=== PATIENT | female | born 1990 | race Caucasian/White ===

== ENCOUNTER 2023-05-21 09:02 | Outpatient (CLI) | payer BC, SELFPAY ==
--- NOTE | 2023-05-21 09:15 | CRLHL7_ITS ---
For Patients: As a result of the Cures Act, medical imaging exams and procedure reports are released immediately into your electronic medical record. You may view this report before your referring provider. If you have questions, please contact your health care provider. INDICATION: First trimester scan, establish dates. COMPARISON: None. TECHNIQUE: Real-time da silva-scale imaging of the pelvis was performed. FINDINGS: Sonographic imaging demonstrates a single living intrauterine gestation. The embryo demonstrates a regular cardiac rate measuring 178 beats per minute. The embryo`s crown-rump length measurement of 1.8 cm corresponds to a gestational age of 8 weeks 1 day with a sonographic due date of 12.30.23. There is a normal-appearing yolk sac. A possible umbilical cord cyst is present which is likely incidental. The gestational sac has a normal appearance. There is no evidence of a perigestational hemorrhage. The amount of fluid within the sac appears appropriate for gestational age. The cervix is closed. The myometrium appears normal. The ovaries are of normal size. Corpus luteal cyst left ovary. There are no suspicious fluid collections noted in the cul-de-sac. IMPRESSION: Single living intrauterine with sonographic gestational age 8 weeks 1 day and sonographic due date 12/30/2023. Possible umbilical cord cyst. Follow-up in 2-3 weeks recommended. Dictated by Ayo Narvaez MD @ 05/21/2023 10:13:14 AM (Electronically Signed)
== END 2023-05-21 09:03 | disposition home or self-care (01) ==
LOC: US 09:03
PROVIDERS: Visit Provider Physician Assistant
DX: Z34.91 Encounter for supervision of normal pregnancy, unspecified, first trimester (principal); Z3A.01 Less than 8 weeks gestation of pregnancy
CPT/HCPCS: 76817; 82565; 82570; 84156; 84450; 84460; 84520; 86703; 86706; 86803; 86850; 86900; 86901; 87086; 87340; 87491; 87591

== ENCOUNTER 2023-05-21 10:20 | Outpatient (CLI) | payer BC, SELFPAY ==
[2023-05-21 19:38] LABS: Chlamydia DNA Amplified* NOT DETECTED (No Detected); GC DNA Amplified* NOT DETECTED (No Detected)
== END 2023-05-21 10:21 | disposition home or self-care (01) ==
PROVIDERS: Visit Provider Physician Assistant
DX: Z34.91 Encounter for supervision of normal pregnancy, unspecified, first trimester (principal)
CPT/HCPCS: 82565; 82570; 84156; 84450; 84460; 84520; 86592; 86703; 86704; 86706; 86762; 86787; 86803; 86850; 86900; 86901; 87086; 87340; 87491; 87591

== ENCOUNTER 2023-05-30 16:43 | Outpatient (CLI) | payer BC, SELFPAY ==
--- OUTSIDE RECORDS SUMMARY | 2023-06-05 18:02 | XMS_ITS | Clinical Summary ---
Author Name Unknown Organization [facility] Address [facility] [place] [address] Care Team Providers Care Manager Paid Name Role Phone Hanna Cuello APRN CRATE REPAIRER Primary Care Prov ider Hanna Cuello APRN CRATE REPAIRER Unavailable + Allergies Active Allergy Reactions Criticality Noted Date Comments Levonorgestrel-Ethiny l Estrad Other (See Comments) 10/16/2017 Migraine with aura on combined control pills Shellfish Allergy Anaphylaxis High 06/16/2007 Medications Medication Sig Dispensed Refills Start Date End Date Status fluticasone (FLONASE) 50 MCG/ACT nasal sprayIndications:Aller gic rhinitis, cause unspecified 2 sprays by Both Nostrils route daily. 1 Package 12 08/28/2010 Active augmented betamethasone dipropionate (DIPROLENE AF) 0.05 % external cream APPLY TO AFFECTED AREA 1-2 TIMES DAILY FOR UP TO TWO WEEKS. 0 01/22/2022 Active SUMAtriptan (IMITREX) 50 MG tabletIndications:Intr actable migraine with aura without status migrainosus Take 1 tablet (50 mg) by mouth at onset of headache for migraine May repeat in 2 hours. Max 4 tablets/24 hours. 27 tablet 0 10/24/2022 Active Active Problems Problem Noted Date Diagnosed Date Gestational hypertension wit hout significant proteinuria, affecting childbirth 05/03/2021 Intractable chronic migraine without aura and without status migrainosus 09/23/2017 Contraceptive management 08/28/2010 CARDIOVASCULAR SCREENING; LDL GOAL LESS THAN 160 03/26/2010 Allergic rhinitis 12/17/2005 Overview: Problem list name updated by automated process. Provider to review Resolved Problems Problem Noted Date Diagnosed Date Resolved Date Sprain of ankle 05/07/2006 05/30/2006 Overview: Problem list name updated by automated process. Provider to review Immunizations Name Administration Dates Next Due HIB (PRP-T) 08/28/1990 HPV 01/12/2008,08/15/2007,06/16/2007 HPV9 06/23/2007 HepB 10/04/1999,04/30/1999,01/05/1999 Historical DTP/aP 01/18/1995, 1,1989,1989,1989 Influenza Vaccine >6 months,quad, PF 03/01/2021, 03/04/2019 MMR 01/05/1999,06/06/1990 Mantoux Tuberculin Skin Test 12/19/2010,06/16/19 08 Meningococcal ACWY (Menactra??) 01/12/2008 OPV, trivalent, live 01/18/1995,01/18/19 95,08/28/1990,1989,1989 TD,PF 7+ (Tenivac) 01/14/2002 TDAP (Adacel,Boostrix) 03/30/2020 TDAP Vaccine (Boostrix) 12/26/2011 Family History Medical History Relation Comments Cancer Maternal Grandfather pancreas Breast Cancer Maternal Grandmother Skin Cancer Mother Cerebrovascular Disease Paternal Grandfather Hypertension Paternal Grandfather Skin Cancer Paternal Grandmother C.A.D. No family hx of Cancer - colorectal No family hx of Relation Status Comments Father Alive Maternal Grandfather Maternal Grandmother Mother Alive Paternal Grandfather Alive Paternal Grandmother Alive Social History Tobacco Use Types Packs/Day Years Used Date Smoking Tobacco: Never Smokeless Tobacco: Never Alcohol Use Standard Drinks/Week Comments Yes 0.8 (1 standard drink = 0.6 oz p ure alcohol) 2-3 drinks per week PHQ-2 Answer Date Recorded PHQ-2 Score 0 10/24/2022 Adolescent Education Answer Date Record ed Getting School Help Needed Not on file 02/15 Sex and Gender Information Value Date Recorded Sex Assigned at Not on file Gender Identity Not on file Sexual Orientation Not on file Last Filed Vital Signs Vital Sign Reading Time Taken Comments Blood Pressure 110/62 05/29/2019 7:39 AM POLE INSPECTOR Pulse 93 05/29/2019 7:39 AM POLE INSPECTOR Temperature 36.9 ??C (98.5 ??F) 05/29/2019 7:39 AM CS T Respiratory Rate 16 11/24/2012 10:41 AM CDT Oxygen Saturation 100% 05/29/2019 7:39 AM POLE INSPECTOR Inhaled Oxygen Concentration - - Weight 58.5 kg (129 lb) 05/29/2019 7:39 AM POLE INSPECTOR Height 158.1 cm (5' 2.25) 05/29/2019 7:39 AM CS T Body Mass Index 23.41 05/29/2019 7:39 AM POLE INSPECTOR Plan of Treatment Health Maintenance Due Date Last Done Comments ADVANCE CARE PLANNING 1989 ANNUAL REVIEW OF HM ORDERS 1989 COVID-19 Vaccine (#1) 1989 HEPATITIS C SCREENING 2007 BMP 05/29/2020 05/29/2019, 05/29, 07/25/2015, Additional history exists YEARLY PREVENTIVE VISIT 05/29/2020 05/29/19 20, 06/25/2017, 07/25/2015, Additional history exists HPV TEST 05/29/2022 05/29/2019, 07/2019, 07/25/2015, Additional history exists PAP 05/29/2022 05/29/2019, 06/28, 11/24/2012, Additional history exists INFLUENZA VACCINE (#1) 2023 , 03/04/2019, 09/23/2017 PHQ-2 (once per calendar year) 2023 10/24/2022, 05/03/2021, 05/29/2019 DTAP/TDAP/TD IMMUNIZATION (8 - Td or Tdap) 03/30/2030 03/30/2020, 12/26/2011, 01/14/2002, Additional history exists IPV IMMUNIZATION Completed 01/18/1995, , 08/28/1990, Additional history exists HEPATITIS B IMMUNIZATION Completed 000, 04/30/1999, 01/05/1999 HPV IMMUNIZATION Completed 01/12/2008, , 06/23/2007, Additional history exists MENINGITIS IMMUNIZATION Completed 01/12/2008 HIV SCREENING Discontinued Pneumococcal Vaccine: Pediatrics (0 to 5 Years) and At-Risk Patients (6 to 64 Years) Aged Out No longer eligible based on patient's age to complete this topic RSV MONOCLONAL ANTIBODY Aged Out No l onger eligible based on patient's age to complete this topic Care Teams Manager Paid Relationship Specialty Start Date End Date Hanna Cuello APRN CRATE REPAIRER [address] [place] [place] [address] PCP - General Nurse Practitioner 05/29/19 Hanna Cuello APRN CRATE REPAIRER [address] [place] [address] Assigned PCP 10/27/22
--- OUTSIDE RECORDS SUMMARY | 2023-06-05 18:03 | XMS_ITS | Encounter Summary ---
Author Name Unknown Organization [facility] Address [address] [place] [address] Care Team Providers Care Renewals Manager Name Role Phone Katarina Ocasio MD Primary Care Provider [phone] [facility] Abdoulaye Primary Care Provider [phone] Jen Littlejohn PA-C Primary Care Provider [phone] Jen Littlejohn PA-C Unavailable [phone] Jen Littlejohn-Frannie Unavailable [phone] Hanna Cuello APRN LACE INSPECTOR Primary Care Prov ider Hanna Cuello APRN LACE INSPECTOR Unavailable + Nini Stack SCRAP HOOKER LACE INSPECTOR Unavailable [phone] Hanna Cuello SCRAP HOOKER LACE INSPECTOR Unavailable + Encounter Details Date Type Department Care Team (Late st Contact Info) Description 08/21/2011 [facility] [address] [address] Yola Castelan Social History Tobacco Use Types Packs/Day Years Used Date Smoking Tobacco: Never Smokeless Tobacco: Never Alcohol Use Standard Drinks/Week Comments Yes 0 (1 standard drink = 0.6 oz pur e alcohol) Sex and Gender Information Value Date Recorded Sex Assigned at Not on file Gender Identity Not on file Sexual Orientation Not on file documented as of this encounter Plan of Treatment Not on file documented as of this encounter Visit Diagnoses Not on filedocumented in this encounter Care Teams Renewals Manager Relationship Specialty Start Date End Date Katarina Ocasio [place] [address] PCP - General 10/31/02 05/27/17 [facility] [address] [facility] [place] [address] PCP - General 05/28/17 07/22/17 Jen Littlejohn PA-C [address] [place] [address] PCP - General Physician Senior Hr Business Partner 07/23/17 05/28/19 Jen Littlejohn PA-C [address] [facility] [place] [address] PCP - Assigned PCP 06/30/17 07/29/18 Hanna Cuello APRN LACE INSPECTOR [address] [place] [address] PCP - General Nurse Practitioner 05/29/19 Jen Littlejohn PA-C [address] [facility] [place] [address] Assigned PCP 06/30/17 06/06/19 Hanna Cuello APRN LACE INSPECTOR [address] [place] [address] Assigned PCP 06/07/19 05/20/21 Nini Stack APRN LACE INSPECTOR [address] [place] [address] Assigned PCP 05/21/21 10/26/22 Hanna Cuello APRN LACE INSPECTOR [address] [place] [address] Assigned PCP 10/27/22 documented as of this encounter
--- OUTSIDE RECORDS SUMMARY | 2023-06-05 18:03 | XMS_ITS | Encounter Summary ---
Author Name Unknown Organization [facility] Address [address] [place] [address] Care Team Providers Care Beveling And Edging Machine Operator Name Role Phone Hanna Cuello APRN, CNP Primary Care Prov ider Nini Stack APRN DIRECTOR COLLEGE Unavailable [phone] Reason for Visit * Reason Comments Recheck Medication Encounter Details Date Type Department Care Team (Late st Contact Info) Description 10/24/2022 10:30 AM CDT Virtual Visit [address] [address] Hanna Cuello APRN [facility] [address] [place], [place] [id number] Intractable migraine with aura without status migrainosus Social History Tobacco Use Types Packs/Day Years Used Date Smoking Tobacco: Never Smokeless Tobacco: Never Alcohol Use Standard Drinks/Week Comments Yes 0.8 (1 standard drink = 0.6 oz p ure alcohol) 2-3 drinks per week PHQ-2 Answer Date Recorded PHQ-2 Score 0 10/24/2022 Sex and Gender Information Value Date Recorded Sex Assigned at Not on file Gender Identity Not on file Sexual Orientation Not on file documented as of this encounter Progress Notes * Hanna Cuello APRN CNP - 10/24/2022 10:30 AM CDT Images from the original note were not included. Chuck is a 32 year old who is being evaluated via a billable video visit. How would you like to obtain your AVS? MyChart If the video visit is dropped, the invitation should be resent by: Text to cell phone: [phone] Will anyone else be joining your video visit? No Assessment & Plan Intractable migraine with aura without status migrainosus No concerns. Stable. Continue same medication this was refilled today. - SUMAtriptan (IMITREX) 50 MG tablet Dispense: 27 tablet; Refill: 0 Return in about 4 weeks (around 11/21/2022) for wellness exam with labs. Hanna Cuello APRN [facility] Chuck is a 32 year old, presenting for the following health issues: Recheck Medication 10/24/2022 10:20 AM Additional Questions Roomed by Aroldo BOND Accompanied by Self History of Present Illness Headaches: Since the patient's last clinic visit, headaches are: no change The patient is getting headaches: Once every few months She is not able to do normal daily activities when she has a migraine. The patient is taking the following rescue/relief medications: Ibuprofen (Advil, Motrin) and sumatriptan (Imitrex) Patient states I get total relief from the rescue/relief medications. The patient is taking the following medications to prevent migraines: Other In the past 4 weeks, the patient has gone to an Urgent Care or Emergency Room 0 times times due to headaches. She eats 2-3 servings of fruits and vegetables daily.She consumes 1 sweetened beverage(s) daily.Sheexercises with enough effort to increase her heart rate 30 to 60 minutes per day. She exercises with enough effort to increase her heart rate 6 days per week. She is taking medications regularly. Overdue for wellness physical and lab work. Has had a busy few years with and motherhood. No changes in medication needs for her migraines uses medication very rarely just recently had a migraine and did not have a refill available as it was . Review of Systems Constitutional, HEENT, cardiovascular, pulmonary, GI, , musculoskeletal, neuro, skin, endocrine and psych systems are negative, except as otherwise noted in the HPI. Objective Vitals: No vitals were obtained today due to virtual visit. Physical Exam GENERAL: Healthy, alert and no distress, very pleasant EYES: Eyes grossly normal to inspection. No discharge or erythema, or obvious scleral/conjunctival abnormalities. RESP: No audible wheeze, cough, or visible cyanosis. No visible retractions or increased work of breathing. SKIN: Visible skin clear. No significant rash, abnormal pigmentation or lesions. NEURO: Cranial nerves grossly intact. Mentation and speech appropriate for age. PSYCH: Mentation appears normal, affect normal/bright, judgement and insight intact, normal speech and appearance well-groomed. Video-Visit Details Type of service: Video Visit Originating Location (pt. Location): Home Distant Location (provider location): On-site Platform used for Video Visit: Lucio documented in this encounter Plan of Treatment Not on file documented as of this encounter Visit Diagnoses Diagnosis Intractable migraine with aura without status migrainosus Migraine with aura, with intractable migraine, so stated, without mention of status migrainosus documented in this encounter Care Teams Beveling And Edging Machine Operator Relationship Specialty Start Date End Date Hanna Cuello APRN CNP [address] [place] [address] PCP - General Nurse Practitioner 05/29/19 Nini Stack APRN CNP [address] [place] [address] Assigned PCP 05/21/21 10/26/22 documented as of this encounter
--- OUTSIDE RECORDS SUMMARY | 2023-06-05 18:03 | XMS_ITS | Referral Summary ---
Author Name Unknown Organization [facility] Address [facility] [place] [address] Care Team Providers Care Supervisor Electric Name Role Phone Hanna Cuello APRN COMPOSITE BOND TECHNICIAN Primary Care Prov ider Hanna Cuello APRN COMPOSITE BOND TECHNICIAN Unavailable + Allergies Active Allergy Reactions Criticality [...] TDAP (Adacel,Boostrix) 03/30/2020 TDAP Vaccine (Boostrix) 12/26/2011 Social History Tobacco Use Types Packs/Day Years [...] Comments Blood Pressure 110/62 05/29/2019 7:39 AM CONVEYOR BELT INSTALLER Pulse 93 05/29/2019 7:39 AM CONVEYOR BELT INSTALLER Temperature 36.9 ??C (98.5 ??F) 05/29/2019 7:39 AM CS T Respiratory Rate 16 11/24/2012 10:41 AM CDT Oxygen Saturation 100% 05/29/2019 7:39 AM CONVEYOR BELT INSTALLER Inhaled Oxygen Concentration - - Weight 58.5 kg (129 lb) 05/29/2019 7:39 AM CONVEYOR BELT INSTALLER Height 158.1 cm (5' 2.25) 05/29/2019 7:39 AM CS T Body Mass Index 23.41 05/29/2019 7:39 AM CONVEYOR BELT INSTALLER Plan of Treatment Not on file Care Teams Supervisor Electric Relationship Specialty Start Date End Date Hanna Cuello APRN COMPOSITE BOND TECHNICIAN [address] [place] [id number] PCP - General Nurse Practitioner 05/29/19 Hanna Cuello APRN COMPOSITE BOND TECHNICIAN [address] [place] [address] [id number] Assigned PCP 10/27/22
--- OUTSIDE RECORDS SUMMARY | 2023-06-05 18:03 | XMS_ITS | Encounter Summary ---
Author Name Unknown Organization [facility] Address [address] [place] [address] Care Team Providers Care Salesperson Trailers And Motor Homes Name Role Phone Katarina Ocasio MD Primary Care Provider [phone] [facility] Primary Care Provider [phone] Jen Littlejohn PA-C Primary Care Provider [phone] Jen Littlejohn PA-C Unavailable [phone] Jen Littlejohn-Frannie Unavailable [phone] Hanna Cuello APRN CRANK HAND Primary Care Prov ider Hanna Cuello APRN CRANK HAND Unavailable + Nini Stack PATIENT TRANSPORT OFFICER CRANK HAND Unavailable [phone] Hanna Cuello PATIENT TRANSPORT OFFICER CRANK HAND Unavailable + Encounter Details Date Type Department Care Team (Late st Contact Info) Description 04/07/[address] [address] [place] [address] [place] [address] [facility] Social History Tobacco Use Types Packs/Day Years Used Date Smoking Tobacco: Never Smokeless Tobacco: Never Alcohol Use Standard Drinks/Week Comments Yes 0.8 (1 standard drink = 0.6 oz p ure alcohol) 2-3 drinks per week Sex and Gender Information Value Date Recorded Sex Assigned at Not on file Gender Identity Not on file Sexual Orientation Not on file documented as of this encounter Plan of Treatment Not on file documented as of this encounter Visit Diagnoses Not on filedocumented in this encounter Care Teams Salesperson Trailers And Motor Homes Relationship Specialty Start Date End Date Katarina Ocasio MD [address] [facility] [place] [address] PCP - General 10/31/02 05/27/17 [facility] [address] [place] [address] PCP - General 05/28/17 07/22/17 Jen Littlejohn PA-C [address] [place] [address] PCP - General Physician Adjunct Professor Of Law 07/23/17 05/28/19 Jen Littlejohn PA-C [address] [facility] [place] [address] PCP - Assigned PCP 06/30/17 07/29/18 Hanna Cuello APRN CRANK HAND [address] [place] [address] PCP - General Nurse Practitioner 05/29/19 Jen Littlejohn PA-C [address] [facility] [place] [address] Assigned PCP 06/30/17 06/06/19 Hanna Cuello APRN CRANK HAND [address] [place] [address] Assigned PCP 06/07/19 05/20/21 Nini Stack APRN CRANK HAND [address] [place] [address] Assigned PCP 05/21/21 10/26/22 Hanna Cuello APRN CRANK HAND [address] [place] [address] Assigned PCP 10/27/22 documented as of this encounter
== END 2023-05-30 16:44 | disposition home or self-care (01) ==
LOC: NFLDREF 06-05 18:01
PROVIDERS: Visit Provider Physician Assistant
DX: Z34.91 Encounter for supervision of normal pregnancy, unspecified, first trimester (principal)
CPT/HCPCS: 82570; 84156

== ENCOUNTER 2023-06-19 08:54 | Outpatient (CLI) | payer BC, SELFPAY ==
--- OUTSIDE RECORDS SUMMARY | 2023-06-19 08:57 | XMS_ITS | Encounter Summary ---
Author Name Unknown Organization [facility] Address [address] [place] [address] Care Team Providers Care Associate Artistic Director Name Role Phone Hanna Cuello APRN, CNP Primary Care Prov ider Nini Stack APRN KITCHEN PORTER Unavailable [phone] Reason for Visit * Reason Comments Recheck Medication Encounter Details Date Type Department Care Team (Late st Contact Info) Description 10/24/2022 10:30 AM CDT Virtual Visit [address] [address] Hanna Cuello APRN [facility] [address] [place], [place] [id number] Intractable migraine with aura without status migrainosus [...] be resent by: Text to cell phone: [phone] Will anyone else be joining your video visit? No Assessment & Plan Intractable migraine with aura without status migrainosus No concerns. Stable. Continue same medication this was refilled today. - SUMAtriptan (IMITREX) 50 MG tablet Dispense: 27 tablet; Refill: 0 Return in about 4 weeks (around 11/21/2022) for wellness exam with labs. Hanna Cuello APRN [facility] Chuck is a 32 year old, presenting [...] migrainosus documented in this encounter Care Teams Associate Artistic Director Relationship Specialty Start Date End Date Hanna Cuello APRN CNP [address] [place] [address] PCP - General Nurse Practitioner 05/29/19 Nini Stack APRN CNP [address] [place] [address] Assigned PCP 05/21/21 10/26/22 documented as of this encounter
--- OUTSIDE RECORDS SUMMARY | 2023-06-19 08:57 | XMS_ITS | Referral Summary ---
Author Name Unknown Organization [facility] Address [facility] [place] [address] Care Team Providers Care Ramp Service Employee Name Role Phone Hanna Cuello APRN NATIONAL RECRUITER Primary Care Prov ider Hanna Cuello APRN NATIONAL RECRUITER Unavailable + Allergies Active Allergy Reactions Criticality [...] Comments Blood Pressure 110/62 05/29/2019 7:39 AM ELECTRONIC WARFARE TECHNICIAN Pulse 93 05/29/2019 7:39 AM ELECTRONIC WARFARE TECHNICIAN Temperature 36.9 ??C (98.5 ??F) 05/29/2019 7:39 AM CS T Respiratory Rate 16 11/24/2012 10:41 AM CDT Oxygen Saturation 100% 05/29/2019 7:39 AM ELECTRONIC WARFARE TECHNICIAN Inhaled Oxygen Concentration - - Weight 58.5 kg (129 lb) 05/29/2019 7:39 AM ELECTRONIC WARFARE TECHNICIAN Height 158.1 cm (5' 2.25) 05/29/2019 7:39 AM CS T Body Mass Index 23.41 05/29/2019 7:39 AM ELECTRONIC WARFARE TECHNICIAN Plan of Treatment Not on file Care Teams Ramp Service Employee Relationship Specialty Start Date End Date Hanna Cuello APRN NATIONAL RECRUITER [address] [place] [address] [id number] PCP - General Nurse Practitioner 05/29/19 Hanna Cuello APRN NATIONAL RECRUITER [address] [place] [address] [id number] Assigned PCP 10/27/22
--- OUTSIDE RECORDS SUMMARY | 2023-06-19 08:57 | XMS_ITS | Encounter Summary ---
Author Name Unknown Organization [facility] Address [address] [place] [address] Care Team Providers Care Small Offset Printer Name Role Phone Katarina Ocasio MD Primary Care Provider [phone] [facility] Abdoulaye Primary Care Provider [phone] Jen Littlejohn PA-C Primary Care Provider [phone] Jen Littlejohn PA-C Unavailable [phone] Jen Littlejohn-Frannie Unavailable [phone] Hanna Cuello APRN CREDIT RISK MODELER Primary Care Prov ider Hanna Cuello APRN CREDIT RISK MODELER Unavailable + Nini Stack MEDICATION CARE MANAGER CREDIT RISK MODELER Unavailable [phone] Hanna Ceullo MEDICATION CARE MANAGER CREDIT RISK MODELER Unavailable + Encounter Details Date Type Department Care Team (Late st Contact Info) Description 08/21/2011 [facility] [address] [address] Yola Castelan Social History Tobacco [...] on filedocumented in this encounter Care Teams Small Offset Printer Relationship Specialty Start Date End Date Katarina Ocasio [place] [address] PCP - General 10/31/02 05/27/17 [facility] [address] [facility] [place] [place] [address] PCP - General 05/28/17 07/22/17 Jen Littlejohn PA-C [address] [place] [address] PCP - General Physician Security Inspector 07/23/17 05/28/19 Jen Littlejohn PA-C [address] [facility] [place] [address] PCP - Assigned PCP 06/30/17 07/29/18 Hanna Cuello APRN CREDIT RISK MODELER [address] [place] [address] PCP - General Nurse Practitioner 05/29/19 Jen Littlejohn PA-C [address] [facility] [address] Assigned PCP 06/30/17 06/06/19 Hanna Cuello APRN CREDIT RISK MODELER [address] [place] [address] Assigned PCP 06/07/19 05/20/21 Nini Stack APRN CREDIT RISK MODELER [address] [place] [address] Assigned PCP 05/21/21 10/26/22 Hanna Cuello APRN CREDIT RISK MODELER [address] [place] [address] Assigned PCP 10/27/22 documented as of this encounter
--- OUTSIDE RECORDS SUMMARY | 2023-06-19 08:57 | XMS_ITS | Encounter Summary ---
Author Name Unknown Organization [place] Address [address] [place] [address] Care Team Providers Care Curb Hop Name Role Phone Katarina Ocasio MD Primary Care Provider [phone] [facility] Primary Care Provider [phone] Jen Littlejohn PA-C Primary Care Provider [phone] Jen Littlejohn PA-C Unavailable [phone] Jen Littlejohn-Frannie Unavailable [phone] Hanna Cuello APRN INTELLIGENCE GROUP SUPERVISOR Primary Care Prov ider Hanna Cuello APRN INTELLIGENCE GROUP SUPERVISOR Unavailable + Nini Stack APRN INTELLIGENCE GROUP SUPERVISOR Unavailable [phone] Hanna Cuello SHAREPOINT ARCHITECT INTELLIGENCE GROUP SUPERVISOR Unavailable + Encounter Details Date Type Department Care Team (Late st Contact Info) Description 04/07/[address] [address] [place] [address] [place] [address] [facility] Social History Tobacco Use Types [...] on filedocumented in this encounter Care Teams Curb Hop Relationship Specialty Start Date End Date Katarina Ocasio MD [facility] [place] [place] [address] PCP - General 10/31/02 05/27/17 [facility] [address] [place] [address] PCP - General 05/28/17 07/22/17 Jen Littlejohn PA-C [address] [place] [address] PCP - General Physician Shredder Picker 07/23/17 05/28/19 Jen Littlejohn PA-C [address] [place] [address] PCP - Assigned PCP 06/30/17 07/29/18 Hanna Cuello APRN INTELLIGENCE GROUP SUPERVISOR [address] [place] [address] PCP - General Nurse Practitioner 05/29/19 Jen Littlejohn PA-C [address] [place] [address] Assigned PCP 06/30/17 06/06/19 Hanna Cuello APRN INTELLIGENCE GROUP SUPERVISOR [address] [place] [address] Assigned PCP 06/07/19 05/20/21 Nini Stack APRN INTELLIGENCE GROUP SUPERVISOR [address] [place] [address] Assigned PCP 05/21/21 10/26/22 Hanna Cuello APRN INTELLIGENCE GROUP SUPERVISOR [address] [place] [address] Assigned PCP 10/27/22 documented as of this encounter
--- OUTSIDE RECORDS SUMMARY | 2023-06-19 08:57 | XMS_ITS | Clinical Summary ---
Author Name Unknown Organization [place] Address [facility] [place] [address] Care Team Providers Care Boring Machine Set Up Operator Name Role Phone Hanna Cuello APRN MEDART OPERATOR Primary Care Prov ider Hanna Cuello APRN MEDART OPERATOR Unavailable + Allergies Active Allergy Reactions Criticality [...] Comments Blood Pressure 110/62 05/29/2019 7:39 AM DIRECTOR OF INSTITUTIONAL RESEARCH Pulse 93 05/29/2019 7:39 AM DIRECTOR OF INSTITUTIONAL RESEARCH Temperature 36.9 ??C (98.5 ??F) 05/29/2019 7:39 AM CS T Respiratory Rate 16 11/24/2012 10:41 AM CDT Oxygen Saturation 100% 05/29/2019 7:39 AM DIRECTOR OF INSTITUTIONAL RESEARCH Inhaled Oxygen Concentration - - Weight 58.5 kg (129 lb) 05/29/2019 7:39 AM DIRECTOR OF INSTITUTIONAL RESEARCH Height 158.1 cm (5' 2.25) 05/29/2019 7:39 AM CS T Body Mass Index 23.41 05/29/2019 7:39 AM DIRECTOR OF INSTITUTIONAL RESEARCH Plan of Treatment Health Maintenance Due Date [...] age to complete this topic Care Teams Boring Machine Set Up Operator Relationship Specialty Start Date End Date Hanna Cuello APRN MEDART OPERATOR [address] [place] [address] PCP - General Nurse Practitioner 05/29/19 Hanna Cuello APRN MEDART OPERATOR [address] [place] [address] Assigned PCP 10/27/22
== END 2023-06-19 08:55 | disposition home or self-care (01) ==
LOC: NFLDREF 08:55
PROVIDERS: Visit Provider Registered Nurse
DX: R32 Unspecified urinary incontinence (principal)
CPT/HCPCS: 87086

== ENCOUNTER 2023-08-16 08:11 | Outpatient (CLI) | payer BC, SELFPAY ==
--- NOTE | 2023-08-16 08:15 | US_ITS ---
Patient: CLARK THACKER Facility:?[facility] Patient ID:?[id number] Site Patient ID:?[id number]. Site :?1990 Study:?US-OB Pelvis OB ANATOMY-08/16/2023 9:12:19 AM Ordering Physician:?XIOMY GUALLPA M.D. Final Report: INDICATION: Evaluate anatomy. COMPARISON: 05/21/2023 TECHNIQUE: Real time da silva scale imaging of the fetus was performed as well as color Doppler analysis of the umbilical vessels. FINDINGS: Sonographic imaging demonstrates a single living intrauterine gestation. Fetus demonstrates a regular cardiac rate of 167 beats per minute. Fetus has a variable position. The placenta lies anteriorly without evidence of placenta previa. Placental edge is 5.4 cm from the internal cervical os. Amniotic fluid volume appears normal. Single deepest vertical pocket: 5.4 cm. The cervix is closed and measures 3.5 cm in length. The composite ultrasound gestational age is calculated at 21 weeks 0 days with an estimated sonographic due date of 12/27/2023. The estimated weight is 389 grams which lies at the 67th %. The following biometric measurements were obtained: Biparietal diameter: 4.9 cm/20 weeks 5 days 58th% Head circumference: 18.5 cm/20 weeks 6 days 53rd% Abdominal circumference: 16.4 cm/21 weeks 3 days 72nd% Femur length: 3.3 cm/20 weeks 3 day 36th% The HC/AC ratio measures: 1.13 range (1.06-1.25) On anatomic survey, there is a normal appearance of the cerebral ventricles, cavum septi pellucidi, cisterna magna and cerebellum. The nose, lips, and facial profile appear normal. The cervical, thoracic and lumbar spine are well visualized and appear normal. There is a normal four-chamber heart view and the left and right ventricular outflow tracts appear normal. The diaphragm and stomach appear normal. The kidneys and bladder also appear normal. There is a normal three-vessel cord and cord insertion site. The four extremities appear normal. IMPRESSION: Normal OB ultrasound exam with concordance of clinical and sonographic dating. No intrinsic abnormalities noted on anatomic survey. Dictated by Ayo Narvaez MD @ 08/16/2023 11:48:15 AM Signed by:?Ayo Narvaez MD @08/16/2023 11:48:15 AM (Electronic Signature)
== END 2023-08-16 08:12 | disposition home or self-care (01) ==
LOC: US 08:11
PROVIDERS: Visit Provider Obstetrics & Gynecology
DX: Z34.92 Encounter for supervision of normal pregnancy, unspecified, second trimester (principal); Z3A.21 21 weeks gestation of pregnancy
CPT/HCPCS: 76805

== ENCOUNTER 2023-10-09 09:39 | Outpatient (CLI) | payer BC, SELFPAY ==
--- OUTSIDE RECORDS SUMMARY | 2023-10-10 07:18 | XMS_ITS | Encounter Summary ---
Author Name Unknown Organization [place] Address [address] [place] [address] Care Team Providers Care Patternmaker All Around Name Role Phone Katarina Ocasio MD Primary Care Provider [phone] [facility] Primary Care Provider [phone] Jen Littlejohn PA-C Primary Care Provider [phone] Jen Littlejohn PA-C Unavailable [phone] Jen Littlejohn-Frannie Unavailable [phone] Hanna Cuello APRN PULLER THROUGH Primary Care Prov ider Hanna Cuello APRN PULLER THROUGH Unavailable + Nini Stack APRN PULLER THROUGH Unavailable [phone] Hanna Cuello DIRECTOR OF MARKETING [employer] PERFORMANCE ADS PULLER THROUGH Unavailable + Encounter Details Date Type Department Care Team (Late st Contact Info) Description 04/07/[address] [address] [place] [address] [place] [address] [facility] Social History Tobacco Use Types Packs/Day Years [...] on filedocumented in this encounter Care Teams Patternmaker All Around Relationship Specialty Start Date End Date Katarina Ocasio [place] [address] PCP - General 10/31/02 [facility]/27/[facility] [address] [place] [id number] PCP - General 05/28/17 07/22/17 Jen Littlejohn PA-C [address] [address] PCP - General Physician Patient Care Provider 07/23/17 05/28/19 Jen Littlejohn, RANCHO [address] [place] [id number] PCP - Assigned PCP 06/30/17 07/29/18 Hanna Cuello APRN PULLER THROUGH [address] [place] [address] PCP - General Nurse Practitioner 05/29/19 Jen Littlejohn, RANCHO [address] [place] [address] [place], [place] [phone] Assigned PCP 06/30/17 06/06/19 Hanna Cuello APRN PULLER THROUGH [address] [place] [address] [id number] Assigned PCP 06/07/19 05/20/21 Nini Stack APRN PULLER THROUGH [address] [place] [address] [phone] Assigned PCP 05/21/21 10/26/22 Hanna Cuello APRN PULLER THROUGH [address] [place] [address] Assigned PCP 10/27/22 documented as of this encounter
--- OUTSIDE RECORDS SUMMARY | 2023-10-10 07:18 | XMS_ITS | Encounter Summary ---
Author Name Unknown Organization [place] Address [address] [place] [address] Care Team Providers Care Collection Systems Worker Name Role Phone Katarina Ocasio MD Primary Care Provider [phone] [facility] Abdoulaye Primary Care Provider [phone] Jen Littlejohn PA-C Primary Care Provider [phone] Jen Littlejohn PA-C Unavailable [phone] Jen Littlejohn-Frannie Unavailable [phone] Hanna Cuello APRN SAP TECHNICAL DEVELOPER Primary Care Prov ider Hanna Cuello APRN SAP TECHNICAL DEVELOPER Unavailable + Nini Stack OCCUPATIONAL WORK EXPERIENCE TEACHER SAP TECHNICAL DEVELOPER Unavailable [phone] Hanna Cuello OCCUPATIONAL WORK EXPERIENCE TEACHER SAP TECHNICAL DEVELOPER Unavailable + Encounter Details Date Type Department Care Team (Late st Contact Info) Description 08/21/2011 [facility] [address] [address] Yola Castelan Social History Tobacco [...] on filedocumented in this encounter Care Teams Collection Systems Worker Relationship Specialty Start Date End Date Katarina Ocasio MD [facility] [place] [address] PCP - General 10/31/02 05/27/17 [facility] [address] [place] [address] PCP - General 05/28/17 07/22/17 Jen Littlejohn PA-C [address] [place] [address] PCP - General Physician Export Manager 07/23/17 05/28/19 Jen Littlejohn PA-C [address] [place] [address] PCP - Assigned PCP 06/30/17 07/29/18 Hanna Cuello APRN SAP TECHNICAL DEVELOPER [address] [place] [address] PCP - General Nurse Practitioner 05/29/19 Jen Littlejohn PA-C [address] [place] [address] Assigned PCP 06/30/17 06/06/19 aHnna Cuello APRN SAP TECHNICAL DEVELOPER [address] [place] [address] Assigned PCP 06/07/19 05/20/21 Nini Stack APRN SAP TECHNICAL DEVELOPER [address] [place] [address] [place] [address] Assigned PCP 05/21/21 10/26/22 Hanna Cuello APRN SAP TECHNICAL DEVELOPER [address] [place] [address] Assigned PCP 10/27/22 documented as of this encounter
--- OUTSIDE RECORDS SUMMARY | 2023-10-10 07:18 | XMS_ITS | Referral Summary ---
Author Name Unknown Organization [place] Address [facility] [place] [address] Care Team Providers Care Automatic Thread Winder Name Role Phone Hanna Cuello APRN TOOLING SPECIALIST Primary Care Prov ider Hanna Cuello APRN TOOLING SPECIALIST Unavailable + Allergies Active Allergy Reactions Criticality [...] TIMES DAILY FOR UP TO TWO WEEKS. 01/22/2022 Active SUMAtriptan (IMITREX) 50 MG tabletIndications:Intr actable migraine with aura without status migrainosus Take 1 tablet (50 mg) by mouth at onset of headache for migraine May repeat in 2 hours. Max 4 tablets/24 hours. 27 tablet 10/24/2022 Active Active Problems Problem Noted Date [...] Comments Blood Pressure 110/62 05/29/2019 7:39 AM PICK UP MAN Pulse 93 05/29/2019 7:39 AM PICK UP MAN Temperature 36.9 ??C (98.5 ??F) 05/29/2019 7:39 AM CS T Respiratory Rate 16 11/24/2012 10:41 AM CDT Oxygen Saturation 100% 05/29/2019 7:39 AM PICK UP MAN Inhaled Oxygen Concentration - - Weight 58.5 kg (129 lb) 05/29/2019 7:39 AM PICK UP MAN Height 158.1 cm (5' 2.25) 05/29/2019 7:39 AM CS T Body Mass Index 23.41 05/29/2019 7:39 AM PICK UP MAN Plan of Treatment Not on file Procedures Procedure Name Priority Date/Time Associated Diagnosis Comments HPV HIGH RISK TYPES DNA CERVICAL Routine 05/29/2019 8:25 AM PICK UP MAN Screening for malignant neoplasm of cervix BASIC METABOLIC PANEL Routine 05/29/2019 8:06 AM PICK UP MAN Routine general medical examination at a health care facility PAP IMAGED THIN LAYER SCREEN Routine 05/29/2019 8:03 AM PICK UP MAN Screening for malignant neoplasm of cervix from Last 3 Months or Most Recently Relevant to Health Maintenance Results * HPV High Risk Types DNA Cervical (05/29/2019 8:25 AM PICK UP MAN) HPV Source SurePath 05/29/2019 8:03 AM PICK UP MAN [facility] HPV 16 DNA Negative NEG^Nega tive 06/04/2019 7:[address]ICK UP MAN [facility] HPV 18 DNA Negative NEG^Nega tive 06/04/2019 7:08 AM [address]ICK UP MAN [facility] Other HR HPV Negative NEG^Nega tive 06/04/2019 7:[address]ICK UP MAN [facility] Final Diagnosis This patient's sample is negative for HPV DNA. 06/04/2019 7:08 AM PICK UP MAN [facility] Comment: This test was developed and its performance characteristics determined by the [facility], Molecular Diagnostics Laboratory. It has not been cleared or approved by the FDA. The laboratory is regulated under CLIA as qualified to perform high-complexity testing. This test is used for clinical purposes. It should not be regarded as investigational or for research. (Note) METHODOLOGY: ??The Terry candido 4800 system uses automated extraction, simultaneous amplification of HPV (L1 region) and beta-globin, ?? followed by ??real time detection of fluorescent labeled HPV and beta globin using specific oligonucleotide probes . The test specifically identifies types HPV 16 DNA and HPV 18 DNA while concurrently detecting the rest of the high risk types (31, 33, 35, 39, 45, 51, 52, 56, 58, 59, 66 or 68). COMMENTS: ??This test is not intended for use as a screening device for women under age 30 with normal cervical cytology. ??Results should be correlated with cytologic and histologic findings. Close clinical followup is recommended. Specimen Description Cervical Cells 05/29/2019 8:03 AM PICK UP MAN [facility] Comment:[id number] Cervical Cells CERVIX UTERI STRUCTURE / Unknown 05/29/2019 8:25 AM PICK UP MAN 05/29/2019 8:27 AM PICK UP MAN Hanna Cuello EXTERIOR INTERIOR SPECIALIST TOOLING SPECIALIST LAB - BLOO D ORDERABLES [facility] [address] [place] [address] [place] [address] * BASIC METABOLIC PANEL (05/29/2019 8:06 AM PICK UP MAN) Sodium 138 133 - 144 mmol/L 05/29/2019 1:40 PM [facility] Potassium 4.2 3.4 - 5.3 mmol/L 05/29/2019 1:40 PM [facility] Chloride 107 94 - 109 mmol/L 05/29/2019 1:40 PM [facility] Carbon Dioxide 26 20 - 32 mmol/L 05/29/2019 2:12 PM [facility] Anion Gap 5 3 - 14 mmol/L 05/29/2019 2:12 PM [facility] Glucose 88 70 - 99 mg/dL 05/29/2019 2:12 PM [facility] Urea Nitrogen 14 7 - 30 mg/dL 05/29/2019 2:12 PM [facility] Creatinine 0.87 0.52 - 1.04 mg/dL 05/29/2019 2:12 PM [facility] GFR Estimate 89 >60 mL/min/{1 .73_m2} 05/29/2019 2:12 PM PICK UP MAN [facility] Comment: Non GFR Calc Starting 05/13/2018, serum creatinine based estimated GFR (eGFR) will be calculated using the Chronic Kidney Disease Epidemiology Collaboration (CKD-EPI) equation. GFR Estimate If Black >90 >60 mL/min/{1 .73_m2} 05/29/2019 2:12 PM PICK UP MAN [facility] Comment: GFR Calc Starting 05/13/2018, serum creatinine based estimated GFR (eGFR) will be calculated using the Chronic Kidney Disease Epidemiology Collaboration (CKD-EPI) equation. Calcium 9.2 8.5 - 10.1 mg/dL 05/29/2019 2:12 PM PICK UP MAN [facility] Blood specimen (specimen) 05/29/2019 8:06 AM PICK UP MAN 05/29/2019 8:07 AM PICK UP MAN Hanna Cuello EXTERIOR INTERIOR SPECIALIST TOOLING SPECIALIST LAB - BLOO D ORDERABLES [facility] [address] [place], [place] [address] [phone] [facility] [address] [place] [address] * Pap imaged thin layer screen with HPV - recommended age 30 - 65 years (select HPV order below) (05/29/2019 8:03 AM PICK UP MAN) PAP NIL EDI Gilbert Report Patient Name: CHUCK THACKER MR#: [id number] Specimen #: [id number] Collected: 05/29/2019 Received: 06/01/2019 Reported: 06/02/2019 14:43 Ordering Phy(s): HANNA CUELLO For improved result formatting, select 'View Enhanced Report Format' under Linked Documents section. SPECIMEN/STAIN PROCESS: Pap imaged thin layer prep screening (Surepath, FocalPoint with guided screening) ? Pap-Cyto x 1, HPV ordered x 1 SOURCE: Cervical, endocervical Pap imaged thin layer prep screening (Surepath, FocalPoint with guided screening) SPECIMEN ADEQUACY: Satisfactory for evaluation. -Transformation zone component present. CYTOLOGIC INTERPRETATION: Negative for intraepithelial lesion or malignancy Electronically signed out by: ALISSA Torre (ASCP) CLINICAL HISTORY: LMP: 05/08/2019 A previous normal pap Date of Last Pap: 07/25/2015, Papanicolaou Test Limitations: ??Cervical cytology is a screening test with limited sensitivity; regular screening is critical for cancer prevention; Pap tests are primarily effective for the diagnosis/preventi on of squamous cell carcinoma, not adenocarcinomas or other cancers. COLLECTION SITE: Client: ??[facility] Location: [facility] () The technical component of this testing was completed at the [facility] [employer] [facility], with the professional component performed at the [facility], [address] [place] [phone] ([phone]) COPATH Cytologic material (specimen) 05/29/2019 8:03 AM PICK UP MAN 06/01/2019 10:09 AM PICK UP MAN Hanna Cuello EXTERIOR INTERIOR SPECIALIST TOOLING SPECIALIST LAB - OPTI ME CLINICAL SPECIMEN COPATH from Last 3 Months or Most Recently Relevant to Health Maintenance Care Teams Automatic Thread Winder Relationship Specialty Start Date End Date Hanna Cuello APRN TOOLING SPECIALIST [address] [place], [place] [id number] PCP - General Nurse Practitioner 05/29/19 Hanna Cuello APRN TOOLING SPECIALIST [address] [place] [address] [id number] Assigned PCP 10/27/22
--- OUTSIDE RECORDS SUMMARY | 2023-10-10 07:18 | XMS_ITS | Clinical Summary ---
Author Name Unknown Organization [place] Address [facility] [place] [address] Care Team Providers Care Health Information Internship Name Role Phone Hanna Cuello APRN ADJUNCT ART HISTORY INSTRUCTOR Primary Care Prov ider Hanna Cuello APRN ADJUNCT ART HISTORY INSTRUCTOR Unavailable + Allergies Active Allergy Reactions Criticality [...] Comments Blood Pressure 110/62 05/29/2019 7:39 AM WAX ENGRAVER Pulse 93 05/29/2019 7:39 AM WAX ENGRAVER Temperature 36.9 ??C (98.5 ??F) 05/29/2019 7:39 AM CS T Respiratory Rate 16 11/24/2012 10:41 AM CDT Oxygen Saturation 100% 05/29/2019 7:39 AM WAX ENGRAVER Inhaled Oxygen Concentration - - Weight 58.5 kg (129 lb) 05/29/2019 7:39 AM WAX ENGRAVER Height 158.1 cm (5' 2.25) 05/29/2019 7:39 AM CS T Body Mass Index 23.41 05/29/2019 7:39 AM WAX ENGRAVER Plan of Treatment Health Maintenance Due Date Last Done Comments ADVANCE CARE PLANNING 1990 ANNUAL REVIEW OF HM ORDERS 1989 HEPATITIS C SCREENING 2007 BMP 05/29/2020 05/29/2019, 05/29, 07/25/2015, Additional history exists YEARLY PREVENTIVE VISIT 05/29/2020 05/29/19 20, 06/25/2017, 07/25/2015, Additional history exists HPV TEST 05/29/2022 05/29/2019, 07/2019, 07/25/2015, Additional history exists PAP 05/29/2022 05/29/2019, 06/28, 11/24/2012, Additional history exists COVID-19 Vaccine ( season) 2023 PHQ-2 (once per calendar year) 2023 10/24/2022, 05/03/2021, 05/29/2019 INFLUENZA VACCINE (Season Ended) 2024 03/01/2021, 03/04/2019, 09/23/2017 DTAP/TDAP/TD IMMUNIZATION (8 - Td or Tdap) [...] on patient's age to complete this topic Procedures Procedure Name Priority Date/Time Associated Diagnosis Comments HPV HIGH RISK TYPES DNA CERVICAL Routine 05/29/2019 8:25 AM WAX ENGRAVER Screening for malignant neoplasm of cervix BASIC METABOLIC PANEL Routine 05/29/2019 8:06 AM WAX ENGRAVER Routine general medical examination at a health care facility PAP IMAGED THIN LAYER SCREEN Routine 05/29/2019 8:03 AM WAX ENGRAVER Screening for malignant neoplasm of cervix from Last 3 Months or Most Recently Relevant to Health Maintenance Results * HPV High Risk Types DNA Cervical (05/29/2019 8:25 AM WAX ENGRAVER) HPV Source SurePath 05/29/2019 8:03 AM WAX ENGRAVER [facility] HPV 16 DNA Negative NEG^Nega tive 06/04/2019 7:08 AM WAX ENGRAVER [facility] HPV 18 DNA Negative NEG^Nega tive 06/04/2019 7:08 AM WAX ENGRAVER [facility] Other HR HPV Negative NEG^Nega tive 06/04/2019 7:08 AM WAX ENGRAVER [facility] Final Diagnosis This patient's sample is negative for HPV DNA. 06/04/2019 7:08 AM WAX ENGRAVER [facility] Comment: This test was developed and its performance characteristics determined by the [facility], Molecular Diagnostics Laboratory. It has not [...] Specimen Description Cervical Cells 05/29/2019 8:03 AM WAX ENGRAVER [facility] Comment:C20 340 Cervical Cells CERVIX UTERI STRUCTURE / Unknown 05/29/2019 8:25 AM WAX ENGRAVER 05/29/2019 8:27 AM WAX ENGRAVER Hanna Cuello APRN ADJUNCT ART HISTORY INSTRUCTOR LAB - BLOO D ORDERABLES [facility] [address] [place] [address] [place] [address] * BASIC METABOLIC PANEL (05/29/2019 8:06 AM WAX ENGRAVER) Sodium 138 133 - 144 mmol/L 05/29/2019 1:40 PM [facility] Potassium 4.2 3.4 - 5.3 mmol/L 05/29/2019 1:40 PM [facility] Chloride 107 94 - 109 mmol/L 05/29/2019 1:40 PM [facility] Carbon Dioxide 26 20 - 32 mmol/L 05/29/2019 2:[address] [facility] Anion Gap 5 3 - 14 mmol/L 05/29/2019 2:[address] [facility] Glucose 88 70 - 99 mg/dL 05/29/2019 2:[address] [facility] Urea Nitrogen 14 7 - 30 mg/dL 05/29/2019 2:[address] [facility] Creatinine 0.87 0.52 - 1.04 mg/dL 05/29/2019 2:[address] [facility] GFR Estimate 89 >60 mL/min/{1 .73_m2} 05/29/2019 2:12 PM WAX ENGRAVER [facility] Comment: Non GFR Calc Starting 05/13/2018, serum creatinine based estimated GFR (eGFR) will be calculated using the Chronic Kidney Disease Epidemiology Collaboration (CKD-EPI) equation. GFR Estimate If Black >90 >60 mL/min/{1 .73_m2} 05/29/2019 2:12 PM WAX ENGRAVER [facility] Comment: GFR Calc Starting 05/13/2018, serum creatinine based estimated GFR (eGFR) will be calculated using the Chronic Kidney Disease Epidemiology Collaboration (CKD-EPI) equation. Calcium 9.2 8.5 - 10.1 mg/dL 05/29/2019 2:12 PM WAX ENGRAVER [facility] Blood specimen (specimen) 05/29/2019 8:06 AM WAX ENGRAVER 05/29/2019 8:07 AM WAX ENGRAVER Hanna Cuello QI SPECIALIST ADJUNCT ART HISTORY INSTRUCTOR LAB - BLOO D ORDERABLES Performing Organization Address City/State/[facility] Co de Phone Number [facility] [address] [place], [place] [address] [phone] [facility] [address], [place] [address] * Pap imaged thin layer screen with HPV - recommended age 30 - 65 years (select HPV order below) (05/29/2019 8:03 AM WAX ENGRAVER) PAP NIL EDI Gilbert Report Patient Name: CHUCK THACKER MR#: [id number] Specimen #: [id number] Collected: 05/29/2019 Received: 06/01/2019 [...] adenocarcinomas or other cancers. COLLECTION SITE: Client: ??[facility] Location: [facility] (R) The technical component of this testing was completed at the [facility] [employer] [facility], with the professional component performed at the [facility], [address] [place] [phone] ([phone]) COPATH Cytologic material (specimen) 05/29/2019 8:03 AM WAX ENGRAVER 06/01/2019 10:09 AM WAX ENGRAVER Hanna Cuello APRN ADJUNCT ART HISTORY INSTRUCTOR LAB - [employer] CLINICAL SPECIMEN COPATH from Last 3 Months or Most Recently Relevant to Health Maintenance Care Teams Health Information Internship Relationship Specialty Start Date End Date Hanna Cuello APRN ADJUNCT ART HISTORY INSTRUCTOR [address] [place] [address] PCP - General Nurse Practitioner 05/29/19 Hanna Cuello APRN ADJUNCT ART HISTORY INSTRUCTOR [address] [place] [address] Assigned PCP 10/27/22
== END 2023-10-09 09:40 | disposition home or self-care (01) ==
LOC: NFLDREF 10-10 07:16
PROVIDERS: Visit Provider Obstetrics & Gynecology
DX: Z34.83 Encounter for supervision of other normal pregnancy, third trimester (principal); Z67.11 Type A blood, Rh negative
CPT/HCPCS: 86592; 86850

== ENCOUNTER 2023-11-14 13:53 | Outpatient (CLI) | payer BC, SELFPAY ==
[2023-11-14] VITALS (9 sets, daily range): BP systolic 107–132; BP diastolic 57–81; PULSE 71–93; O2SAT 98
--- OUTSIDE RECORDS SUMMARY | 2023-11-14 13:56 | XMS_ITS | Encounter Summary ---
Author Organization [facility] Address [address] [place] [address] Care Team Providers Care Day Care Provider Name Role Phone Katarina Ocasio MD Primary Care Provider [phone] [facility] Primary Care Provider [phone] Jen Littlejohn PA-C Primary Care Provider [phone] Jen Littlejohn PA-C Unavailable [phone] Jen Littlejohn PA-C Unavailable [phone] Hanna Cuello APRN FORECLOSURE PARALEGAL Primary Care Prov ider Hanna Cuello APRN FORECLOSURE PARALEGAL Unavailable + Nini Stack APRN FORECLOSURE PARALEGAL Unavailable [phone] Hanna Cuello APRN FORECLOSURE PARALEGAL Unavailable + Encounter Details Date Type Department Care Team (Late st Contact Info) Description 04/07/[address] [address] [place] [address] [place] [address] [facility] Social History Tobacco Use Types Packs/Day Years [...] on filedocumented in this encounter Care Teams Day Care Provider Relationship Specialty Start Date End Date Katarina Ocasio MD [address] [place] [address] PCP - General 10/31/02 [facility] [address] [place] [address] PCP - General 05/28/17 07/22/17 Jen Littlejohn PA-C [address] [address] PCP - General Physician Proposal Specialist 07/23/17 05/28/19 Jen Littlejohn, RANCHO [address] [place] [address] [place], [place] [id number] PCP - Assigned PCP 06/30/17 07/29/18 Hanna Cuello APRN FORECLOSURE PARALEGAL [address] [place] [address] [phone] PCP - General Nurse Practitioner 05/29/19 Jen Littlejohn, RANCHO [address] [facility] [place] [id number] Assigned PCP 06/30/17 06/06/19 Hanna Cuello APRN FORECLOSURE PARALEGAL [address] [place] [address] [id number] Assigned PCP 06/07/19 05/20/21 Nini Stack APRN FORECLOSURE PARALEGAL [address] [place] [address] [phone] Assigned PCP 05/21/21 10/26/22 Hanna Cuello APRN FORECLOSURE PARALEGAL [address] [place] [address] [id number] Assigned PCP 10/27/22 documented as of this encounter
--- OUTSIDE RECORDS SUMMARY | 2023-11-14 13:56 | XMS_ITS | Encounter Summary ---
Author Organization [facility] Address [address] [place] [address] Care Team Providers Care Dental Laboratory Manager Name Role Phone Katarina Ocasio MD Primary Care Provider [phone] [facility] Abdoulaye Primary Care Provider [phone] Jen Littlejohn PA-C Primary Care Provider [phone] Jen Littlejohn PA-C Unavailable [phone] Jne Littlejohn PA-C Unavailable [phone] Hanna Cuello APRN OCCUPATIONAL HEALTH PHYSICIAN Primary Care Prov ider Hanna Cuello APRN OCCUPATIONAL HEALTH PHYSICIAN Unavailable + Nini Stack APRN OCCUPATIONAL HEALTH PHYSICIAN Unavailable [phone] Hanna Cuello APRN OCCUPATIONAL HEALTH PHYSICIAN Unavailable + Encounter Details Date Type Department Care Team (Late st Contact Info) Description 08/21/2011 [facility] [address] [address] Yola Castelan Social History Tobacco [...] on filedocumented in this encounter Care Teams Dental Laboratory Manager Relationship Specialty Start Date End Date Katarina [place] [address] PCP - General 10/31/02 05/27/17 [facility] [address] [address] PCP - General 05/28/17 07/22/17 Jen Littlejohn PA-C [address] [address] PCP - General Physician Production Cloth Cutter 07/23/17 05/28/19 Jen Littlejohn PA-C [address] [place] [address] PCP - Assigned PCP 06/30/17 07/29/18 Hanna Cuello APRN OCCUPATIONAL HEALTH PHYSICIAN [address] [place] [address] PCP - General Nurse Practitioner 05/29/19 Jen Littlejohn PA-C [address] [place] [address] Assigned PCP 06/30/17 06/06/19 aHnna Cuello APRN OCCUPATIONAL HEALTH PHYSICIAN [address] [place] [address] Assigned PCP 06/07/19 05/20/21 Nini Stack APRN OCCUPATIONAL HEALTH PHYSICIAN [address] [place] [address] Assigned PCP 05/21/21 10/26/22 Hanna Cuello APRN OCCUPATIONAL HEALTH PHYSICIAN [address] [place] [address] Assigned PCP 10/27/22 documented as of this encounter
--- OUTSIDE RECORDS SUMMARY | 2023-11-14 13:56 | XMS_ITS | Clinical Summary ---
Author Organization [facility] Address [address] [place] [address] Care Team Providers Care Advertising Rep Name Role Phone Hanna Cuello APRN CLINICAL GENETICS LABORATORY CHIEF Primary Care Prov ider Hanna Cuello APRN CLINICAL GENETICS LABORATORY CHIEF Unavailable + Allergies Active Allergy Reactions Criticality [...] Comments Blood Pressure 110/62 05/29/2019 7:39 AM ASPHALT COATER Pulse 93 05/29/2019 7:39 AM ASPHALT COATER Temperature 36.9 ??C (98.5 ??F) 05/29/2019 7:39 AM CS T Respiratory Rate 16 11/24/2012 10:41 AM CDT Oxygen Saturation 100% 05/29/2019 7:39 AM ASPHALT COATER Inhaled Oxygen Concentration - - Weight 58.5 kg (129 lb) 05/29/2019 7:39 AM ASPHALT COATER Height 158.1 cm (5' 2.25) 05/29/2019 7:39 AM CS T Body Mass Index 23.41 05/29/2019 7:39 AM [facility] COATER Plan of Treatment Health Maintenance Due Date Last Done Comments ADVANCE CARE PLANNING 1989 ANNUAL REVIEW OF HM ORDERS 1989 HEPATITIS C SCREENING 2007 BMP 05/29/2020 05/29/2019, 05/29, 07/25/2015, Additional history exists YEARLY PREVENTIVE VISIT 05/29/2020 05/29/19 20, 06/25/2017, 07/25/2015, Additional history exists HPV TEST 05/29/2022 05/29/2019 PAP 05/29/2022 05/29/2019, 06/28, 11/24/2012, Additional history [...] TYPES DNA CERVICAL Routine 05/29/2019 8:25 AM [facility] Screening for malignant neoplasm of cervix BASIC METABOLIC PANEL Routine 05/29/2019 8:06 AM [facility] COATER Routine general medical examination at a health care facility PAP IMAGED THIN LAYER SCREEN Routine 05/29/2019 8:03 AM [facility] CO[facility] Screening for malignant neoplasm of cervix from Last 3 Months or Most Recently Relevant to Health Maintenance Results * HPV High Risk Types DNA Cervical (05/29/2019 8:25 AM ASPHALT COATER) HPV Source SurePath 05/29/2019 8:03 AM [facility] HPV 16 DNA Negative NEG^Nega tive 06/04/2019 7:08 AM [facility] COATER [facility] HPV 18 DNA Negative NEG^Nega tive 06/04/2019 7:08 AM [facility] COATER [facility] Other HR HPV Negative NEG^Nega tive 06/04/2019 7:08 AM [facility] Final Diagnosis This patient's sample is negative for HPV DNA. 06/04/2019 7:08 AM [facility] Comment: This test was developed and its performance characteristics determined by the [facility], Molecular Diagnostics Laboratory. It has not [...] Specimen Description Cervical Cells 05/29/2019 8:03 AM [facility] Comment:C20 340 Cervical Cells CERVIX UTERI STRUCTURE / Unknown 05/29/2019 8:25 AM [facility]ALT COATER 05/29/2019 8:27 AM ASPHALT COATER Hanna Cuello [place] CLINICAL GENETICS LABORATORY CHIEF LAB - BLOO D ORDERABLES [facility] [address] [place] [address] [place] [address] * BASIC METABOLIC PANEL (05/29/2019 8:06 AM ASPHALT COATER) Sodium 138 133 - 144 mmol/L 05/29/2019 1:40 PM [facility] Potassium 4.2 3.4 - 5.3 mmol/L 05/29/2019 1:40 PM [facility] Chloride 107 94 - 109 mmol/L 05/29/2019 1:40 PM [facility] Carbon Dioxide 26 20 - 32 mmol/L 05/29/2019 2:[address] [facility] Anion Gap 5 3 - 14 mmol/L 05/29/2019 2:[address] [facility] Glucose 88 70 - 99 mg/dL 05/29/2019 2:[address] [facility] Urea Nitrogen 14 7 - 30 mg/dL 05/29/2019 2:[address] [facility] Creatinine 0.87 0.52 - 1.04 mg/dL 05/29/2019 2:[address] [facility] GFR Estimate 89 >60 mL/min/{1 .73_m2} 05/29/2019 2:[address] [facility] Comment: Non GFR Calc Starting 05/13/2018, serum creatinine based estimated GFR (eGFR) will be calculated using the Chronic Kidney Disease Epidemiology Collaboration (CKD-EPI) equation. GFR Estimate If Black >90 >60 mL/min/{1 .73_m2} 05/29/2019 2:[address] [facility] Comment: GFR Calc Starting 05/13/2018, serum creatinine based estimated GFR (eGFR) will be calculated using the Chronic Kidney Disease Epidemiology Collaboration (CKD-EPI) equation. Calcium 9.2 8.5 - 10.1 mg/dL 05/29/2019 2:[address] [facility] Blood specimen (specimen) 05/29/2019 8:06 AM [facility] COATER 05/29/2019 8:07 AM [facility] Hanna Cuello [place] [facility] LABORAT[facility] CHIEF LAB - BLOO D ORDERABLES [facility] [address] [place], [place] [id number] [place] [address] [facility] [address], [place] [address] * Pap imaged thin layer screen with HPV - recommended age 30 - 65 years (select HPV order below) (05/29/2019 8:03 AM [facility] COATER) PAP ARVIN Gilbert Report Patient Name: CHUCK THACKER MR#: [id number] Specimen #: [id number] Collected: 05/29/2019 Received: 06/01/2019 [...] adenocarcinomas or other cancers. COLLECTION SITE: Client: ??[facility] Location: [facility] (R) The technical component of this testing was completed at the [facility], with [facility] professional component performed at the [facility], [address] [place] [phone] ([phone]) COPATH Cytologic material (specimen) 05/29/2019 8:03 AM ASPHALT COATER 06/01/2019 10:09 AM [facility] Hanna Cuello APRN CLINICAL GENETICS LABORATORY CHIEF LAB - OPTI [place] CLINICAL SPECIMEN COPATH from Last 3 Months or Most Recently Relevant to Health Maintenance Care Teams Advertising Rep Relationship Specialty Start Date End Date Hanna Cuello APRN CLINICAL GENETICS LABORATORY CHIEF [address] [place] [address] PCP - General Nurse Practitioner 05/29/19 Hanna Cuello APRN CLINICAL GENETICS LABORATORY CHIEF [address] [place] [address] Assigned PCP 10/27/22
--- OUTSIDE RECORDS SUMMARY | 2023-11-14 13:56 | XMS_ITS | Referral Summary ---
Author Organization [facility] Address [address] [place] [address] Care Team Providers Care Office Machine Installer Name Role Phone Hanna Cuello APRN CAR REPAIR SUPERVISOR Primary Care Prov ider Hanna Cuello APRN CAR REPAIR SUPERVISOR Unavailable + Allergies Active Allergy Reactions Criticality [...] Comments Blood Pressure 110/62 05/29/2019 7:39 AM TABLEAU REPORT DEVELOPER Pulse 93 05/29/2019 7:39 AM TABLEAU REPORT DEVELOPER Temperature 36.9 ??C (98.5 ??F) 05/29/2019 7:39 AM CS T Respiratory Rate 16 11/24/2012 10:41 AM CDT Oxygen Saturation 100% 05/29/2019 7:39 AM TABLEAU REPORT DEVELOPER Inhaled Oxygen Concentration - - Weight 58.5 kg (129 lb) 05/29/2019 7:39 AM TABLEAU REPORT DEVELOPER Height 158.1 cm (5' 2.25) 05/29/2019 7:39 AM CS T Body Mass Index 23.41 05/29/2019 7:39 AM TABLEAU REPORT DEVELOPER Plan of Treatment Not on file Procedures Procedure Name Priority Date/Time Associated Diagnosis Comments HPV HIGH RISK TYPES DNA CERVICAL Routine 05/29/2019 8:25 AM TABLEAU REPORT DEVELOPER Screening for malignant neoplasm of cervix BASIC METABOLIC PANEL Routine 05/29/2019 8:06 AM TABLEAU REPORT DEVELOPER Routine general medical examination at a health care facility PAP IMAGED THIN LAYER SCREEN Routine 05/29/2019 8:03 AM TABLEAU REPORT DEVELOPER Screening for malignant neoplasm of cervix from Last 3 Months or Most Recently Relevant to Health Maintenance Results * HPV High Risk Types DNA Cervical (05/29/2019 8:25 AM TABLEAU REPORT DEVELOPER) HPV Source SurePath 05/29/2019 8:03 AM TABLEAU REPORT DEVELOPER [facility] HPV 16 DNA Negative NEG^Nega tive 06/04/2019 7:08 AM TABLEAU REPORT DEVELOPER [facility] HPV 18 DNA Negative NEG^Nega tive 06/04/2019 7:08 AM TABLEAU REPORT DEVELOPER [facility] Other HR HPV Negative NEG^Nega tive 06/04/2019 7:08 AM TABLEAU REPORT DEVELOPER [facility] Final Diagnosis This patient's sample is negative for HPV DNA. 06/04/2019 7:08 AM TABLEAU REPORT DEVELOPER [facility] Comment: This test was developed and its performance characteristics determined by the [facility], Molecular Diagnostics Laboratory. It has not [...] Specimen Description Cervical Cells 05/29/2019 8:03 AM TABLEAU REPORT DEVELOPER [facility] Comment:C20 340 Cervical Cells CERVIX UTERI STRUCTURE / Unknown 05/29/2019 8:25 AM TABLEAU REPORT DEVELOPER 05/29/2019 8:27 AM TABLEAU REPORT DEVELOPER Hanna Cuello APRN CAR REPAIR SUPERVISOR LAB - BLOO D ORDERABLES [facility] [address] [place] [address] [place] [address] * BASIC METABOLIC PANEL (05/29/2019 8:06 AM TABLEAU REPORT DEVELOPER) Sodium 138 133 - 144 mmol/L 05/29/2019 1:40 PM [facility] Potassium 4.2 3.4 - 5.3 mmol/L 05/29/2019 1:40 PM [facility] Chloride 107 94 - 109 mmol/L 05/29/2019 1:40 PM [facility] Carbon Dioxide 26 20 - 32 mmol/L 05/29/2019 2:12 PM [facility] Anion Gap 5 3 - 14 mmol/L 05/29/2019 2:12 PM [facility] Glucose 88 70 - 99 mg/dL 05/29/2019 2:12 PM [facility] Urea Nitrogen 14 7 - 30 mg/dL 05/29/2019 2:12 PM [facility] Creatinine 0.87 0.52 - 1.04 mg/dL 05/29/2019 2:12 PM [facility] GFR Estimate 89 >60 mL/min/{1 .73_m2} 05/29/2019 2:12 [address] [facility] Comment: Non GFR Calc Starting 05/13/2018, serum creatinine based estimated GFR (eGFR) will be calculated using the Chronic Kidney Disease Epidemiology Collaboration (CKD-EPI) equation. GFR Estimate If Black >90 >60 mL/min/{1 .73_m2} 05/29/2019 2:12 [address] [facility] Comment: GFR Calc Starting 05/13/2018, serum creatinine based estimated GFR (eGFR) will be calculated using the Chronic Kidney Disease Epidemiology Collaboration (CKD-EPI) equation. Calcium 9.2 8.5 - 10.1 mg/dL 05/29/2019 2:12 [address] [facility] Blood specimen (specimen) 05/29/2019 8:06 AM TABLEAU REPORT DEVELOPER 05/29/2019 8:07 AM TABLEAU REPORT DEVELOPER Hanna Cuello SOLAR ENERGY SYSTEM INSTALLER CAR REPAIR SUPERVISOR LAB - BLOO D ORDERABLES Performing Organization Address City/State/[facility] Co de Phone Number [facility] [address] [place], [place] [address] [phone] [facility] [address], [place] [address] * Pap imaged thin layer screen with HPV - recommended age 30 - 65 years (select HPV order below) (05/29/2019 8:03 AM TABLEAU REPORT DEVELOPER) PAP NIL COPATH Luisath Report Patient Name: CHUCK THACKER MR#: [id number] Specimen #: [id number] Collected: 05/29/2019 Received: 06/01/2019 [...] adenocarcinomas or other cancers. COLLECTION SITE: Client: ??[facility] Location: [facility] (R) The technical component of this testing was completed at the [facility] [employer] [facility], with the professional component performed at the [facility], [address] [place] [phone] ([phone]) COPATH Cytologic material (specimen) 05/29/2019 8:03 AM TABLEAU REPORT DEVELOPER 06/01/2019 10:09 AM TABLEAU REPORT DEVELOPER Hanna Cuello SOLAR ENERGY SYSTEM INSTALLER CAR REPAIR SUPERVISOR LAB - OPTI ME CLINICAL SPECIMEN COPATH from Last 3 Months or Most Recently Relevant to Health Maintenance Care Teams Office Machine Installer Relationship Specialty Start Date End Date Hanna Cuello APRN CAR REPAIR SUPERVISOR [address] [place] [address] PCP - General Nurse Practitioner 05/29/19 Hanna Cuello APRN CAR REPAIR SUPERVISOR [address] [place] [address] Assigned PCP 10/27/22
--- NOTE | 2023-11-14 16:15 | CRLHL7_ITS ---
For Patients: As a result of the Century Cures Act, medical imaging exams and procedure reports are released immediately into your electronic medical record. You may view this report before your referring provider. If you have questions, please contact your health care provider. INDICATION: Right upper quadrant abdomen pain. TECHNIQUE: Ultrasound abdomen limited. Sonographic images of the right upper quadrant were obtained using da silva-scale and color Doppler images. COMPARISON: None. FINDINGS: Liver: Normal in size and echotexture. No suspicious masses. No intrahepatic biliary dilatation. Gallbladder: No stones or sludge. Normal wall thickness. No pericholecystic fluid. Negative sonographic Fernandez`s sign. Common bile duct: 3 mm. Pancreas: Unremarkable. Right kidney: Normal in size. Normal echotexture and cortex. No suspicious masses, stones, or hydronephrosis. Vasculature: Proximal abdominal aorta and IVC are unremarkable. IMPRESSION: Unremarkable right upper quadrant ultrasound. Dictated by Den Cole MD @ 11/14/2023 5:47:55 PM (Electronically Signed)
[2023-11-14 16:26] LABS: Appearance Urine Clear (Clear); Bilirubin Urine Negative (Negative); Color Urine Yellow (Yellow); Glucose Urine Negative (Negative); Ketones Urine Negative (Negative)
[2023-11-14 16:27] LABS: Blood Urine Negative (Negative); Leukocyte Esterase Urine Trace (Negative); Nitrite Urine Negative (Negative); Protein Urine Negative (Negative); RBC Urine 0-2 (0-2); Specific Gravity Urine <= 1.005 (1.000-1.030); Squamous Epithelial Cell Urine Few (None-Few); Urobilinogen Urine 0.2 (0.2-1.0); WBC Urine 0-2 (0-5); pH Urine 6.5 (5.0-8.5)
--- NOTE | 2023-11-14 18:11 | PC.OBNST ---
NST Note NST Note Start: 11/14/23 14:10 Freq: ONCE Status: Active Protocol: Document 11/14/23 18:10 ABP (Rec: 11/14/23 18:11 ABP [id number]) NST Note 2 Para (# of births) 1 EDC 12/30/23 Gestational Age In Weeks & Days 33 Weeks & 3 Days Patient Presented with Complaint(s) of Pain If Pain, describe location Right upper quadrant pain and lower abdomen pressure Reactive Yes RN Clotilde Enriquez, TAWANA Date 11/14/23 Reactive Yes TAWANA La RN Date 11/14/23 OB NST charge Yes Complete NST Note via Write Note Yes The provider's electronic signature indicates the NST is reactive/appropriate for gestational age. *Note to provider: If an addendum is required, open the patient's chart and click on the note under the Nurse/Allied Health tab.
== END 2023-11-14 17:00 | disposition home or self-care (01) ==
LOC: OB OUT 13:53 → OB 13:54
PROVIDERS: Visit Provider Obstetrics & Gynecology
DX: O47.03 False labor before 37 completed weeks of gestation, third trimester (principal); Z3A.33 33 weeks gestation of pregnancy
CPT/HCPCS: 59025; 76705; 81001; 87086; G0463

== ENCOUNTER 2023-12-04 10:08 | Outpatient (CLI) | payer BC, SELFPAY ==
[2023-12-05 13:34] LABS: Strep B DNA Probe Negative (Negative)
[2023-12-05 14:04] LABS: Strep B Susceptibility Needed? No
--- NOTE | 2023-12-14 16:37 | PC.OBNST ---
The provider's electronic signature indicates the NST is reactive/appropriate for gestational age. *Note to provider: If an addendum is required, open the patient's chart and click on the note under the Nurse/Allied Health tab. Center telephone call greater than 37 weeks Date of call: 12/14/23 Time of call: 1420 Name of person calling: Chuck Cardenas phone # to reach you at: [phone] patient: P: 1 EDC: 12/30/2023 Gestational age: 37.5 weeks Provider: Dr. Felecia Robles Reason for calling (patient's words): I am not sure if my water broke If patient is calling with the following complaints, instructed to come to Center for evaluation: Feels like water broke: unsure Regular contractions that are 5 min apart: [] Bleeding that is bright red and similar to a menstrual period: [] Decreased movement: [] Temp >100.4: [] Patient has a sense that something doesn't feel right: [] Is patient having contractions: [] Reviewed Signs of Labor: Uterine tightening or cramping that occurs at regular intervals. These typically occur at shorter and shorter intervals and may increase in intensity with time. Unlike Mckittrick-Rodriguez contractions, changes in activity should not make these symptoms go away. With true labor, the time between contractions will gradually shorten and the intensity gradually increases. Typical recommendation is coming to the hospital when contractions occur every 5 minutes or less and last for 60 seconds or more for 1 hour. If patient chooses to stay home, patient given comfort instructions and informed if symptoms stay the same or are worse after 1 hour come to Center. Comfort measures: Lie on left side, reset, drink bottle or large cup of water, monitor contractions for 1 hour. Patient verbalized understanding?: Patient instructed to come to center to rule out rupture, wants to wait at home at this time Is patient coming for evaluation?: Patient declines at this time. Telephone conversation guided by approved policy and flow chart, Telephone Calls From Patient's, approved at [facility] perinatology Committee January 2023.
== END 2023-12-04 10:09 | disposition home or self-care (01) ==
PROVIDERS: Visit Provider Obstetrics & Gynecology
DX: Z34.93 Encounter for supervision of normal pregnancy, unspecified, third trimester (principal); Z3A.36 36 weeks gestation of pregnancy
CPT/HCPCS: 87081; 87653

== ENCOUNTER 2024-01-02 07:38 | Inpatient (IN) | payer BC, SELFPAY ==
[2024-01-02] VITALS (54 sets, daily range): BP systolic 97–139; BP diastolic 53–83; PULSE 56–86; RESP 16; TEMP 36.4–37.1; O2SAT 91–100; BMI 30.4
--- OUTSIDE RECORDS SUMMARY | 2024-01-02 07:41 | XMS_ITS | Clinical Summary ---
Author Organization [facility] Address [address] [place] [id number] Care Team Providers Care Twisting Frame Fixer Name Role Phone Hanna Cuello APRN ZOO KEEPER Primary Care Prov ider Hanna Cuello APRN ZOO KEEPER Unavailable + Allergies Active Allergy Reactions Criticality [...] Comments Blood Pressure 110/62 05/29/2019 7:39 AM CORD SPLICER Pulse 93 05/29/2019 7:39 AM CORD SPLICER Temperature 36.9 ??C (98.5 ??F) 05/29/2019 7:39 AM CS T Respiratory Rate 16 11/24/2012 10:41 AM CDT Oxygen Saturation 100% 05/29/2019 7:39 AM CORD SPLICER Inhaled Oxygen Concentration - - Weight 58.5 kg (129 lb) 05/29/2019 7:39 AM CORD SPLICER Height 158.1 cm (5' 2.25) 05/29/2019 7:39 AM CS T Body Mass Index 23.41 05/29/2019 7:39 AM CORD SPLICER Plan of Treatment Health Maintenance Due Date [...] year) 2023 10/24/2022, 05/03/2021, 05/29/2019 INFLUENZA VACCINE (#1) 2024 , 03/04/2019, 09/23/2017 DTAP/TDAP/TD IMMUNIZATION (8 - Td [...] TYPES DNA CERVICAL Routine 05/29/2019 8:25 AM CORD SPLICER Screening for malignant neoplasm of cervix BASIC METABOLIC PANEL Routine 05/29/2019 8:06 AM CORD SPLICER Routine general medical examination at a health care facility PAP IMAGED THIN LAYER SCREEN Routine 05/29/2019 8:03 AM CORD SPLICER Screening for malignant neoplasm of cervix from Last 3 Months or Most Recently Relevant to Health Maintenance Results * HPV High Risk Types DNA Cervical (05/29/2019 8:25 AM CORD SPLICER) HPV Source SurePath 05/29/2019 8:03 AM CORD SPLICER [facility] GUT[facility] HPV 16 DNA Negative NEG^Nega tive 06/04/2019 7:08 AM CORD SPLICER [facility] HPV 18 DNA Negative NEG^Nega tive 06/04/2019 7:08 AM CORD SPLICER [facility] Other HR HPV Negative NEG^Nega tive 06/04/2019 7:08 AM CORD SPLICER [facility] Final Diagnosis This patient's sample is negative for HPV DNA. 06/04/2019 7:08 AM CORD SPLICER [facility] Comment: This test was developed and its performance characteristics determined by the [facility], Molecular Diagnostics Laboratory. It has not been [...] Specimen Description Cervical Cells 05/29/2019 8:03 AM CORD SPLICER [facility] Comment:C20 340 Cervical Cells CERVIX UTERI STRUCTURE / Unknown 05/29/2019 8:25 AM CORD SPLICER 05/29/2019 8:27 AM CORD SPLICER Hanna Cuello CERTIFIED BENCH JEWELER TECHNICIAN ZOO KEEPER LAB - BLOO D ORDERABLES [facility] [address] [place] [address] [place] [address] * BASIC METABOLIC PANEL (05/29/2019 8:06 AM CORD SPLICER) Sodium 138 133 - 144 mmol/L 05/29/2019 1:40 PM [facility] Potassium 4.2 3.4 - 5.3 mmol/L 05/29/2019 1:40 PM [facility] Chloride 107 94 - 109 mmol/L 05/29/2019 1:40 PM [facility] Carbon Dioxide 26 20 - 32 mmol/L 05/29/2019 2:12 PM [facility] Anion Gap 5 3 - 14 mmol/L 05/29/2019 2:12 PM [facility] Glucose 88 70 - 99 mg/dL 05/29/2019 2:12 PM [facility] Urea Nitrogen 14 7 - 30 mg/dL 05/29/2019 2:12 PM [facility] Creatinine 0.87 0.52 - 1.04 mg/dL 05/29/2019 2:12 PM [facility] GFR Estimate 89 >60 mL/min/{1 .73_m2} 05/29/2019 2:12 PM [facility] Comment: Non GFR Calc Starting 05/13/2018, serum creatinine based estimated GFR (eGFR) will be calculated using the Chronic Kidney Disease Epidemiology Collaboration (CKD-EPI) equation. GFR Estimate If Black >90 >60 mL/min/{1 .73_m2} 05/29/2019 2:12 PM CORD SPLICER [facility] Comment: GFR Calc Starting 05/13/2018, serum creatinine based estimated GFR (eGFR) will be calculated using the Chronic Kidney Disease Epidemiology Collaboration (CKD-EPI) equation. Calcium 9.2 8.5 - 10.1 mg/dL 05/29/2019 2:12 PM CORD SPLICER [facility] Blood specimen (specimen) 05/29/2019 8:06 AM CORD SPLICER 05/29/2019 8:07 AM CORD SPLICER Hanna Cuello CERTIFIED BENCH JEWELER TECHNICIAN ZOO KEEPER LAB - BLOO D ORDERABLES [facility] [address] [place], [place] [id number] [place] [address] [facility] [address] [address] * Pap imaged thin layer screen with HPV - recommended age 30 - 65 years (select HPV order below) (05/29/2019 8:03 AM CORD SPLICER) PAP ARVIN Gilbert Report Patient Name: CHUCK THACKER MR#: [id number] Specimen #: [id number] Collected: 05/29/2019 Received: 06/01/2019 [...] adenocarcinomas or other cancers. COLLECTION SITE: Client: ??[facility] Location: [facility] (R) The technical component of this testing was completed at [facility], with the professional component performed at the [facility], [address] [place] [phone] ([phone]) COPATH Cytologic material (specimen) 05/29/2019 8:03 AM CORD SPLICER 06/01/2019 10:09 AM CORD SPLICER Hanna Cuello APRN ZOO KEEPER LAB - OPTI PR CLINICAL SPECIMEN COPATH from Last 3 Months or Most Recently Relevant to Health Maintenance Care Teams Twisting Frame Fixer Relationship Specialty Start Date End Date Hanna Cuello APRN ZOO KEEPER [address] [place] [address] PCP - General Nurse Practitioner 05/29/19 Hanna Cuello APRN ZOO KEEPER [address] [place] [address] Assigned PCP 10/27/22
--- OUTSIDE RECORDS SUMMARY | 2024-01-02 07:41 | XMS_ITS | Encounter Summary ---
Author Organization [facility] Address [address] [place] [address] Care Team Providers Care Mock Up Maker Name Role Phone Katarina Ocasio MD Primary Care Provider [phone] [facility] Abdoulaye Primary Care Provider [phone] Jen Littlejohn PA-C Primary Care Provider [phone] Jen Littlejohn PA-C Unavailable [phone] Jen Littlejohn PA-C Unavailable [phone] Hanna Cuello APRN SHOP GIRL Primary Care Prov ider Hanna Cuello APRN SHOP GIRL Unavailable + Nini Stack APRN SHOP GIRL Unavailable [phone] Hanna Cuello APRN SHOP GIRL Unavailable + Encounter Details Date Type Department Care Team (Late st Contact Info) Description 08/21/2011 [facility] [address] [address] Yola Castelan Social History Tobacco [...] on filedocumented in this encounter Care Teams Mock Up Maker Relationship Specialty Start Date End Date Katairna Ocasio [place] [address] PCP - General 10/31/02 05/27/17 [facility] [address] [place] [address] PCP - General 05/28/17 07/22/17 Jen Littlejohn PA-C [address] [address] PCP - General Physician Signal Apprentice 07/23/17 05/28/19 Jen Littlejohn PA-C [address] [place] [address] PCP - Assigned PCP 06/30/17 07/29/18 Hanna Cuello APRN SHOP GIRL [address] [place] [address] PCP - General Nurse Practitioner 05/29/19 Jen Littlejohn PA-C [address] [place] [address] Assigned PCP 06/30/17 06/06/19 Hanna Cuello APRN SHOP GIRL [address] [place] [address] Assigned PCP 06/07/19 05/20/21 Nini Stack APRN SHOP GIRL [address] [place] [address] Assigned PCP 05/21/21 10/26/22 Hanna Cuello APRN SHOP GIRL [address] [place] [address] Assigned PCP 10/27/22 documented as of this encounter
--- OUTSIDE RECORDS SUMMARY | 2024-01-02 07:41 | XMS_ITS | Referral Summary ---
Author Organization [facility] Address [address] [place] [address] Care Team Providers Care Cuff Presser Name Role Phone Hanna Cuello APRN PRIMARY CARE MD Primary Care Prov ider Hanna Cuello APRN PRIMARY CARE MD Unavailable + Allergies Active Allergy Reactions Criticality [...] Comments Blood Pressure 110/62 05/29/2019 7:39 AM AUDIO VISUAL EQUIPMENT RENTAL CLERK Pulse 93 05/29/2019 7:39 AM AUDIO VISUAL EQUIPMENT RENTAL CLERK Temperature 36.9 ??C (98.5 ??F) 05/29/2019 7:39 AM CS T Respiratory Rate 16 11/24/2012 10:41 AM CDT Oxygen Saturation 100% 05/29/2019 7:39 AM AUDIO VISUAL EQUIPMENT RENTAL CLERK Inhaled Oxygen Concentration - - Weight 58.5 kg (129 lb) 05/29/2019 7:39 AM AUDIO VISUAL EQUIPMENT RENTAL CLERK Height 158.1 cm (5' 2.25) 05/29/2019 7:39 AM CS T Body Mass Index 23.41 05/29/2019 7:39 AM AUDIO VISUAL EQUIPMENT RENTAL CLERK Plan of Treatment Not on file Procedures Procedure Name Priority Date/Time Associated Diagnosis Comments HPV HIGH RISK TYPES DNA CERVICAL Routine 05/29/2019 8:25 AM AUDIO VISUAL EQUIPMENT RENTAL CLERK Screening for malignant neoplasm of cervix BASIC METABOLIC PANEL Routine 05/29/2019 8:06 AM AUDIO VISUAL EQUIPMENT RENTAL CLERK Routine general medical examination at a health care facility PAP IMAGED THIN LAYER SCREEN Routine 05/29/2019 8:03 AM AUDIO VISUAL EQUIPMENT RENTAL CLERK Screening for malignant neoplasm of cervix from Last 3 Months or Most Recently Relevant to Health Maintenance Results * HPV High Risk Types DNA Cervical (05/29/2019 8:25 AM AUDIO VISUAL EQUIPMENT RENTAL CLERK) HPV Source SurePath 05/29/2019 8:03 AM AUDIO VISUAL EQUIPMENT RENTAL CLERK [facility] HPV 16 DNA Negative NEG^Nega tive 06/04/2019 7:08 AM AUDIO VISUAL EQUIPMENT RENTAL CLERK [facility] HPV 18 DNA Negative NEG^Nega tive 06/04/2019 7:08 AM AUDIO VISUAL EQUIPMENT RENTAL CLERK [facility] Other HR HPV Negative NEG^Nega tive 06/04/2019 7:08 AM AUDIO VISUAL EQUIPMENT RENTAL CLERK [facility] Final Diagnosis This patient's sample is negative for HPV DNA. 06/04/2019 7:08 AM AUDIO VISUAL EQUIPMENT RENTAL CLERK [facility] Comment: This test was developed and its performance characteristics determined by the [facility], Molecular Diagnostics Laboratory. It has not [...] Specimen Description Cervical Cells 05/29/2019 8:03 AM AUDIO VISUAL EQUIPMENT RENTAL CLERK [facility] Comment:C20 340 Cervical Cells CERVIX UTERI STRUCTURE / Unknown 05/29/2019 8:25 AM AUDIO VISUAL EQUIPMENT RENTAL CLERK 05/29/2019 8:27 AM AUDIO VISUAL EQUIPMENT RENTAL CLERK Hanna Cuello APRN PRIMARY CARE MD LAB - BLOO D ORDERABLES [facility] [address] [place] [address] [place] [address] * BASIC METABOLIC PANEL (05/29/2019 8:06 AM AUDIO VISUAL EQUIPMENT RENTAL CLERK) Sodium 138 133 - 144 mmol/L 05/29/2019 1:40 PM [facility] Potassium 4.2 3.4 - 5.3 mmol/L 05/29/2019 1:40 PM [facility] Chloride 107 94 - 109 mmol/L 05/29/2019 1:40 PM [facility] Carbon Dioxide 26 20 - 32 mmol/L 05/29/2019 2:12 PM [facility] Anion Gap 5 3 - 14 mmol/L 05/29/2019 2:12 PM [facility] Glucose 88 70 - 99 mg/dL 05/29/2019 2:12 PM [facility] Urea Nitrogen 14 7 - 30 mg/dL 05/29/2019 2:12 PM [facility] Creatinine 0.87 0.52 - 1.04 mg/dL 05/29/2019 2:12 PM [facility] GFR Estimate 89 >60 mL/min/{1 .73_m2} 05/29/2019 2:12 PM AUDIO VISUAL EQUIPMENT RENTAL CLERK [facility] Comment: Non GFR Calc Starting 05/13/2018, serum creatinine based estimated GFR (eGFR) will be calculated using the Chronic Kidney Disease Epidemiology Collaboration (CKD-EPI) equation. GFR Estimate If Black >90 >60 mL/min/{1 .73_m2} 05/29/2019 2:12 PM AUDIO VISUAL EQUIPMENT RENTAL CLERK [facility] Comment: GFR Calc Starting 05/13/2018, serum creatinine based estimated GFR (eGFR) will be calculated using the Chronic Kidney Disease Epidemiology Collaboration (CKD-EPI) equation. Calcium 9.2 8.5 - 10.1 mg/dL 05/29/2019 2:12 PM AUDIO VISUAL EQUIPMENT RENTAL CLERK [facility] Blood specimen (specimen) 05/29/2019 8:06 AM AUDIO VISUAL EQUIPMENT RENTAL CLERK 05/29/2019 8:07 AM AUDIO VISUAL EQUIPMENT RENTAL CLERK Hanna Cuello APPLICATION SECURITY ENGINEER PRIMARY CARE MD LAB - BLOO D ORDERABLES Performing Organization Address City/State/[facility] Co de Phone Number [facility] [address] [place], [place] [address] [phone] [facility] [address] [address] * Pap imaged thin layer screen with HPV - recommended age 30 - 65 years (select HPV order below) (05/29/2019 8:03 AM AUDIO VISUAL EQUIPMENT RENTAL CLERK) PAP NIL COPATH Luisath Report Patient Name: CHUCK THACKER MR#: [id number] Specimen #: [id number] Collected: 05/29/2019 Received: 06/01/2019 [...] adenocarcinomas or other cancers. COLLECTION SITE: Client: ??[facility] Location: [facility] (R) The technical component of this testing was completed at the General acute hospital [facility], with the professional component performed at the [facility] hospital [facility], [address] [place] [phone] ([phone]) COPATH Cytologic material (specimen) 05/29/2019 8:03 AM AUDIO VISUAL EQUIPMENT RENTAL CLERK 06/01/2019 10:09 AM AUDIO VISUAL EQUIPMENT RENTAL CLERK Hanna Cuello APPLICATION SECURITY ENGINEER PRIMARY CARE MD LAB - OPTI ME CLINICAL SPECIMEN COPATH from Last 3 Months or Most Recently Relevant to Health Maintenance Care Teams Cuff Presser Relationship Specialty Start Date End Date Hanna Cuello APRN PRIMARY CARE MD [address] [place] [address] PCP - General Nurse Practitioner 05/29/19 [place] [address] [place] [address] Assigned PCP 10/27/22
--- OUTSIDE RECORDS SUMMARY | 2024-01-02 07:42 | XMS_ITS | Encounter Summary ---
Author Organization [facility] Address [address] [place] [address] Care Team Providers Care Motorcycle Deliverer Name Role Phone Katarina Ocasio MD Primary Care Provider [phone] [facility] Primary Care Provider [phone] Jen Littlejohn PA-C Primary Care Provider [phone] Jen Littlejohn PA-C Unavailable [phone] Jen Littlejohn PA-C Unavailable [phone] Hanna Cuello APRN PRIMARY CLINICIAN Primary Care Prov ider Hanna Cuello APRN PRIMARY CLINICIAN Unavailable + Nini Stack APRN PRIMARY CLINICIAN Unavailable [phone] Hanna Cuello APRN PRIMARY CLINICIAN Unavailable + Encounter Details Date Type Department Care Team (Late st Contact Info) Description 04/07/[address] [address] [place] [address] [place] [address] [facility] Social History Tobacco Use Types [...] on filedocumented in this encounter Care Teams Motorcycle Deliverer Relationship Specialty Start Date End Date Katarina Ocasio MD [address] [place] [address] PCP - General 10/31/02 [facility]27[facility]17 [facility] [address] [place] [address] PCP - General 05/28/17 07/22/17 Jen Littlejohn PA-C [address] [address] PCP - General Physician Seam Steamer 07/23/17 05/28/19 Jen Littlejohn, [place] [address] [place] [address] [place], [place] [id number] PCP - Assigned PCP 06/30/17 07/29/18 Hanna Cuello APRN PRIMARY CLINICIAN [address] [place] [address] PCP - General Nurse Practitioner 05/29/19 Jen Littlejohn, [place] [address] [facility] [place] [id number] Assigned PCP 06/30/17 06/06/19 Hanna Cuello APRN PRIMARY CLINICIAN [address] [place] [address] [id number] Assigned PCP 06/07/19 05/20/21 Nini Stack APRN PRIMARY CLINICIAN [address] [place] [address] 982862 Assigned PCP 05/21/21 10/26/22 Hanna Cuello APRN PRIMARY CLINICIAN [address] [place] [address] Assigned PCP 10/27/22 documented as of this encounter
--- NOTE | 2024-01-02 08:16 | W.PM.LDBA ---
Subjective History of Present Illness Time Seen by Provider: : Date Seen: 01/02/24 Narrative: Patient is being admitted to Labor and Delivery for an elective IOL. She is a 33 year old at 40 and 3/7 weeks gestation. Her full history and physical was dictated by Dr. Page on 12/11/2023. Please see this for details. Feeling a few contractions. Normal movement. Verbal consent obtained to perform artificial rupture of membranes. Specific Issues/Plans 1. History of preeclampsia Baseline pre E labs:all normal with exception of pr/cr ratio: .80 H 24 hour urine for protein: 126mg Aspirin 81 mg until delivery 2. Migraine Magnesium daily Taking sumatriptan Flu shot: declines Covid shot: declines Tdap: 10-23-23 32wk MAYO/PHQ: done 34wk HGB: 12.6 GBS: negative on 12/03 H&P: Dr. Page on 12/10 OB - Problem Based A/P Additional Plan (1) Encounter for induction of labor: Status: Acute Plan 1. Pitocin per induction protocol. 2. Blood type A negative. 3. GBS negative. 4. Planning epidural for labor analgesia. OB Exam Physical Exam Vital signs: Temp Pulse BP Pulse Ox 97.5 F L 68 130/77 97 01/02/24 07:58 01/02/24 07:58 01/02/24 07:58 01/02/24 08:00 Narrative: GENERAL APPEARANCE: Pleasant, , well-groomed woman in no acute distress. VITAL SIGNS: as noted in nursing notes HEAD: Normocephalic, atraumatic. THYROID: no masses, nodularity, tenderness or enlargement. LUNGS: Clear to auscultation bilaterally without wheezes, rales or rhonchi. HEART: Regular rate and rhythm with normal S1 and S2. No gallop, rub or murmur. ABDOMEN: Gravid. Soft, nontender, nondistended, with normal bowels sounds throughout. EFM: Baseline 130s. Accelerations: Present. Decelerations: Absent. Reactive. Category 1. TOCO: Every 3-10 minutes. SVE: 3 cm/ 50 %/ -2/soft/mid. Coburn score: 7. AROM: Clear fluid EXTREMITIES: No cyanosis, clubbing, or edema. No varicosities. NEUROLOGIC: Normal gait and balance. Normal deep tendon reflexes at bilateral patella 2+/2, equal without clonus. PSYCHIATRIC: alert and oriented x3. Normal speech pattern, eye contact and affect. SKIN: Warm, dry, and well perfused. Good turgor. No lesions, nodules or rashes.
[2024-01-02 08:58] LABS: Hematocrit 36.3 % (33.0-51.0); Hemoglobin* 12.2 gm/dL (12.0-16.0); Red Blood Count 3.93 m/uL (4.00-5.20); White Blood Count* 11.73 K/uL (4.50-11.00)
[2024-01-02 08:59] LABS: Basophils Percent Auto 0.3 % (0.0-3.0); Eosinophils Percent Auto 0.4 % (0.0-7.0); Lymphocytes Percent Auto 20.1 % (20-44); Mean Corpuscular HGB Conc 34 gm/dL (32-36); Mean Corpuscular Hemoglobin 31 pg (26-34); Mean Corpuscular Volume 92 fL (80-100); Neutrophils Percent Auto 73.2 % (42.0-72.0); Platelet Count* 174 K/uL (140-440); RDW Coefficient of Variation % 13.1 % (11.5-15.5)
[2024-01-02 09:00] LABS: Slide Review Reflex No
[2024-01-02] MEDS: LACTATED RINGERS 1000 ML 1,000 ML 125 ML IV (09:39)
[2024-01-02] MEDS: OXYTOCIN 30 unit/500 ML in NS 30 UNIT/500 ML BAG IVPB (09:39)
[2024-01-02] MEDS: LIDOCAINE 2% (PF) 5 ML VIAL EPIDURAL (14:03)
[2024-01-02] MEDS: LACTATED RINGERS 1000 ML 1,000 ML 1025 ML IV (14:03)
[2024-01-02] MEDS: ROPIVACAINE 0.2% 100 ml 100 ML 12 MG EPIDURAL (14:03)
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
[2024-01-02] MEDS: fentaNYL 250 MCG/5 ML inj 100 MCG EPIDURAL (14:21)
[2024-01-02] MEDS: PHENYLEPHRINE 100 MCG/ML SYRINGE IVP ×3 (14:32→14:53)
--- NOTE | 2024-01-02 16:48 | W.PM.VAGDEL1 ---
Procedure Delivery date: 01/02/24 Procedure Done: Global Procedure Details: Chuck is a 33 year-old G 2 P 1 now 2 admitted on 01/02/2024 at 7:30 a.m. at 40 Weeks, 3 Days gestation for induction of labor. AROM occurred at 8:25 a.m. on 01/02/2024 with clear fluid. Labor Analgesia: Epidural Pitocin: Yes Labor onset: 01/02/2024 at 2:00 p.m. Complete: 01/02/2024 at 4:09 p.m.. Pushin01/02/2024 at 4:19 p.m. heart tones during second stage were: Category 2 with late decelerations with contractions swell pushing with delayed return to baseline. At 4:30 p.m. a viable male infant delivered in vertex direct OA presentation over intact perineum via spontaneous vaginal delivery. The infant was placed on maternal abdomen. Cord was clamped and cut after a 60 second delay. Nose and mouth were bulb suctioned. weight pending. 9 at 1 minute and 9 at 5 minutes. Shoulder dystocia: No. Nuchal cord: No Placenta delivered spontaneously and complete at 4:35 p.m. with a 3 vessel cord. Laceration(s): None. Blood loss: 100 mL. Blood loss measurement type: Quantitative Sponge and needles counts are correct. Specimen: None Mother and infant were stable after delivery. Infant's name: Moises The patient is planning on breast feeding. Events: Labor Induction Intrapartal Events: Labor Induction Delivery monitor: external FHT and external uterine Route of delivery: Laceration description: None Estimated blood loss (mL): 100 Anesthesia type: Epidural Disposition: floor
[2024-01-03 00:12] VITALS: BP 121/84; PULSE 69; RESP 18; TEMP 36.8
[2024-01-03 03:21] VITALS: BP 131/80; PULSE 70; RESP 18
[2024-01-03 06:55] LABS: Hemoglobin* 12.5 gm/dL (12.0-16.0)
[2024-01-03 07:35] VITALS: BP 127/89; PULSE 64; RESP 19; TEMP 36.8; O2SAT 96
[2024-01-03] MEDS: IBUPROFEN 600 MG TABLET PO (07:41)
[2024-01-03 11:57] VITALS: BP 105/66; PULSE 68; RESP 17; TEMP 36.6; O2SAT 95
--- NOTE | 2024-01-03 12:36 | PM.ANPOST ---
Post Anesthesia Note Post Anesthesia Note Patient seen: Inpatient Respiratory Status: adequate Cardiovascular Status: adequate Mental Status: baseline Pain: adequate Temp: baseline Anesthetic awareness: no Complications: none Follow care: none
--- NOTE | 2024-01-03 15:04 | PM.OBDSVD1 ---
DS: Providers Provider Date Seen: 01/03/24 Date of admission: 01/02/24 07:38 Primary care physician: Not a Local Provider Admitting Clinician: Melia Urban MD Attending Physician on discharge: Emma Keller CNM DS: Diagnosis Discharge Diagnosis (1) care and examination immediately after delivery: Status: Acute (2) Lactating mother: Status: Acute Exam Narrative: Exam Narrative: GENERAL APPEARANCE:? normal affect, alert, no distress MOOD:? appropriate CHEST:? clear to auscultation HEART:? regular rate and rhythm ABDOMEN:? soft, non-tender the uterine fundus is At Umbilicus, Midline and is appropriate for the stage of recovery. PERINEUM:? mild edema of the perineum. EXTREMITIES:? normal and no edema Const: Vital Signs, click to edit/add: Vital Signs - 24 hr 01/02/24 15:07 01/02/24 15:12 01/02/24 15:17 Temperature Pulse Rate 59 L 66 66 Pulse Rate [Pulse Oximeter] Respiratory Rate Blood Pressure 101/59 L 109/60 109/58 L Blood Pressure [Le ft Arm] Pulse Oximetry Oxygen Delivery [facility] 01/02/24 15:22 01/02/24 15:27 01/02/24 15:32 Temperature Pulse Rate 59 L 60 60 Pulse Rate [Pulse Oximeter] Respiratory Rate Blood Pressure 102/59 L 97/54 L 104/59 L Blood Pressure [Le ft Arm] Pulse Oximetry [facility] 01/02/24 15:37 01/02/24 15:42 01/02/24 15:47 Temperature Pulse Rate 57 L 56 L 68 Pulse Rate [Pulse Oximeter] Respiratory Rate Blood Pressure 102/58 L 98/53 L 104/59 L Blood Pressure [Le ft Arm] Pulse Oximetry [facility] 01/02/24 15:52 01/02/24 15:57 01/02/24 16:03 Temperature Pulse Rate 66 65 63 Pulse Rate [Pulse Oximeter] Respiratory Rate Blood Pressure 103/59 L 98/62 100/55 L Blood Pressure [Le ft Arm] Pulse Oximetry [facility] 01/02/24 16:07 01/02/24 16:13 01/02/24 16:17 Temperature Pulse Rate 63 61 68 Pulse Rate [Pulse Oximeter] Respiratory Rate Blood Pressure 97/53 L 115/65 111/75 Blood Pressure [Le ft Arm] Pulse Oximetry [facility] 01/02/24 16:20 01/02/24 16:22 01/02/24 16:25 Temperature Pulse Rate Pulse Rate [Pulse Oximeter] Respiratory Rate Blood Pressure Blood Pressure [Le ft Arm] Pulse Oximetry 99 91 99 [facility] 01/02/24 16:36 01/02/24 16:51 01/02/24 17:06 Temperature Pulse Rate 73 69 74 Pulse Rate [Pulse Oximeter] Respiratory Rate Blood Pressure 109/58 L 112/55 L 106/58 L Blood Pressure [Le ft Arm] Pulse Oximetry [facility] 01/02/24 17:21 01/02/24 17:36 01/02/24 17:51 Temperature Pulse Rate 67 69 64 Pulse Rate [Pulse Oximeter] Respiratory Rate Blood Pressure 110/67 115/68 120/81 Blood Pressure [Le ft Arm] Pulse Oximetry [facility] 01/02/24 18:06 01/02/24 18:21 01/02/24 18:36 Temperature Pulse Rate 66 86 64 Pulse Rate [Pulse Oximeter] Respiratory Rate Blood Pressure 114/67 120/78 118/70 Blood Pressure [Le ft Arm] Pulse Oximetry [facility] 01/02/24 21:06 01/03/24 00:12 01/03/24 03:21 Temperature 98.7 F 98.3 F Pulse Rate Pulse Rate [Pulse Oximeter] 65 69 70 Respiratory Rate 16 18 18 Blood Pressure Blood Pressure [Le ft Arm] 122/66 121/84 131/80 Pulse Oximetry [facility] Room Air Room Air Room Air 01/03/24 07:35 01/03/24 11:57 Temperature 98.2 F 97.9 F Pulse Rate Pulse Rate [Pulse Oximeter] 64 68 Respiratory Rate 19 17 Blood Pressure Blood Pressure [Le ft Arm] 127/89 105/66 Pulse Oximetry 96 95 [facility] Room Air OB - DS: Summary Hospital Course Hospital Course: Chuck is a 33 y.o. G 2 P 2 who was admitted to [facility] for spontaneous onset of labor. ?She had a NVD that was uncomplicated. The patient feels well. ?The pain is well controlled with current medications. ?She has no new complaints. ?She is breast feeding and reports things are going well. the patient has done well.? Vitals have been stable.? She has remained afebrile.? Has a good appetite, is tolerating a general diet. ?She is voiding without difficulty.? She is passing gas and has not had a bowel movement.? She is ambulating and denies any dizziness.? Has small amount of rubra lochia. She is planning condoms/NFP for prevention. Problems: none plan: Discharge home with baby. Follow up in 2 weeks and 6 weeks. , may see if needed Hgb 12.5. Peripartum Data delivery method: Vaginal Laceration description: None complications: none Infant Gender: Male Status at Discharge Functional status at discharge: independent ambulation Overall status at discharge: patient is progressing back to baseline Time Spent with Patient Time attestation: Total time spent providing and/or coordinating discharge services: Time spent: Less than 30 minutes Discharge Plan Discharge Disposition: Home, Self-Care Date of Admission: 01/02/24 07:38 Attending Provider on Discharge: Emma Keller Primary Care Provider: Provider,Not a Local Condition: Stable Anticipated Discharge Date/Time: 01/03/24 16:00 Discharge Medications: New docusate sodium 100 mg Capsule 100 mg PO BID PRNQty: 90 0RF ibuprofen 600 mg Tablet 600 mg PO Q6H PRNQty: 60 0RF acetaminophen 500 mg Tablet 1,000 mg PO Q6H PRNQty: 0 0RF Continued DHA 200 mg capsule 1 mg PO DAILY magnesium oxide 400 mg (241.3 mg magnesium) tablet 400 mg PO DAILY sumatriptan succinate 50 mg tablet 50 mg PO .PRN Hold Instructions: not currently having migranes Discontinued aspirin [Adult Low Dose Aspirin] 81 mg tablet,delayed release (DR/EC) 81 mg PO QDAY Discharge Orders: Discharge Order (Routine); Ordered 01/03/24 Ordered By: Emma Keller Patient Education: OB Over the Counter Medication Information, OB Vaginal/Breast Feeding Additional Instructions: Discharge instructions were reviewed with the patient including signs and symptoms of infection and home going medications Nothing vaginally for 6 weeks: no tampons or intercourse Off Work or School for 6 weeks 2-week visit: discuss feeding concerns, review control options and screen for anxiety/depression. 6-week visit for an annual exam. consultation services are available to all mothers and babies for the first year after delivery.? To make an appointment, please call [phone]. Activity Level: Activity as Tolerated Discharge Diet: Regular Follow Up Appointments: [facility] [Provider Group] Forms: [employer] Info Instructions
[2024-01-03 17:30] VITALS: BP 119/74; PULSE 66; RESP 17; TEMP 36.5; O2SAT 96
[2024-01-03 19:49] LABS: Rapid Plasma Reagin (RPR) Non Reactive (Non Reactive)
== END 2024-01-03 19:07 | disposition home or self-care (01) | DRG 560 ==
PROVIDERS: Admitting Provider Obstetrics & Gynecology; Visit Provider Obstetrics & Gynecology
DX: O48.0 Post-term pregnancy (principal); Z3A.40 40 weeks gestation of pregnancy; Z37.0 Single live birth
CPT/HCPCS: 01967; 36415; 85018; 85025; 85461; 86592; A9270; J2371; J2791; J2795; J3010; J7120